=== PATIENT | male | born 1975 | race Caucasian/White ===

== ENCOUNTER 2016-07-11 08:46 | Inpatient (IN) | payer OTHER ==
[2016-07-11 10:19] VITALS: BMI 25.9
--- NOTE | 2016-07-11 12:34 | HP ---
COWS - Scale Resting Pulse: 0= [place] 80 or Below Sweatin=Flushed/Facial Moisture Restless Observation: 3= Extraneous Movement Pupil Size: 2= Moderately Dilated Bone or Joint Aches: 2= Severe Diffuse Aches Runny Nose/ Eye Tearin= Runny Nose/Eyes GI Upset > 30mins: 3= Vomiting/Diarrhea Tremor Observation: 2= Slight Tremor Visible Yawning Observation: 2= >3x During Session Anxiety or Irritability: 2=Irritable/Anxious Goose Flesh Skin: 0=Smooth Skin COWS Score: 20 CIWA Score - CIWA Score Nausea/Vomitin Muscle Tremors: 3 Anxiety: 3 Agitation: 3 Paroxysmal Sweats: 2 Orientation: 0-Oriented Tacttile Disturbances: 2-Mild Itch/Numbness/Burn Auditory Disturbances: 2-Mild Harshness/Frighten Visual Disturbances: 2-Mild Sensitivity Headache: 2-Mild CIWA-Ar Total Score: 22 Admission ROS BHS - HPI Chief Complaint: I NEED HELP TO STOP USING HEROIN,ALCOHOL AND COCAINE Allergies/Adverse Reactions: Allergies Allergy/AdvReac Type Severity Reaction Status Date / Time No Known Allergies Allergy Verified 07/11/16 11:13 History of Present Illness: THIS 41 YEARS OLD MALE SEEKING HELP TO STOP USING HEROIN,ALCOHOL AND COCAINE, LAST DETOX [facility] LAST 05/23 NOT COMPLETED NICOTINE DEPENDENCE WEIGHT LOSS BIPOLAR DISORDER,PTSD Exam Limitations: No Limitations - Ebola screening Have you traveled outside of the country in the last 21 days: No Have you had contact with anyone from an Ebola affected area: No Have you been sick,other than usual withdrawal symptoms: No Do you have a fever: No - Review of Systems Constitutional: Chills, Loss of Appetite, Malaise, Night Sweats, Changes in sleep, Weakness, Unintentional Wgt. Loss EENT: reports: Tearing, Nose Congestion Respiratory: reports: No Symptoms reported Cardiac: reports: Palpitations GI: reports: Diarrhea, Nausea, Vomiting, Abdominal cramping : reports: No Symptoms Reported Musculoskeletal: reports: Back Pain, Joint Pain, Muscle Pain, Joint Stiffness Integumentary: reports: Dryness Neuro: reports: Headache, Tremors Endocrine: reports: No Symptoms Reported Hematology: reports: No Symptoms Reported Psychiatric: reports: No Sypmtoms Reported (BIPOLAR DISORDER,PTSD), Judgement Intact, Mood/Affect Appropiate, Orientated x3, other Patient History - Patient Medical History Hx Anemia: No Hx Asthma: No Hx Chronic Obstructive Pulmonary Disease (COPD): No Hx Cancer: No Hx Cardiac Disorders: No Hx Congestive Heart Failure: No Hx Hypertension: No Hx Hypercholesterolemia: No Hx Pacemaker: No HX Cerebrovascular Accident: No Hx Seizures: No Hx Dementia: No Hx Diabetes: No Hx Gastrointestinal Disorders: No Hx Liver Disease: No Hx Genitourinary Disorders: No Hx Sexually Transmitted Disorders: No Hx Renal Disease (ESRD): No Hx Thyroid Disease: No Hx Human Immunodeficiency Virus (HIV): No (LAST 2015) Hx Hepatitis C: No Hx Depression: Yes Hx Suicide Attempt: No Hx Bipolar Disorder: Yes (no medications) Hx Schizophrenia: No Other Medical History: NO SUICIDAL,NO HOMICIDAL - Patient Surgical History Past Surgical History: No Hx Neurologic Surgery: No Hx Cataract Extraction: No Hx Cardiac Surgery: No Hx Lung Surgery: No Hx Breast Surgery: No Hx Breast Biopsy: No Hx Abdominal Surgery: No Hx Appendectomy: No Hx Cholecystectomy: No Hx Genitourinary Surgery: No Hx Section: No Hx Orthopedic Surgery: No Anesthesia Reaction: No - PPD History Previous Implant?: Yes Documented Results: Negative w/o proof Implanted On Prior R Admission?: Yes Date: 09/23/14 Results: 0 mm PPD to be Administered?: Yes - Smoking Cessation Smoking history: Current every day smoker Have you smoked in the past 12 months: Yes Aproximately how many cigarettes per day: 10 Cigars Per Day: 0 Hx Chewing Tobacco Use: No Initiated information on smoking cessation: Yes 'Breaking Loose' booklet given: 07/11/16 - Substance & Tx. History Hx Alcohol Use: Yes Hx Substance Use: Yes Substance Use Type: Alcohol, Cocaine, Heroin - Substances Abused Heroin Route: Injection Frequency: Daily Amount used: 8 bags Age of first use: 19 Date of Last Use: 07/10/16 Cocaine Route: Inhalation Frequency: 3-6 times per week Amount used: $40 Age of first use: 26 Date of Last Use: 07/10/16 Alcohol-beer/vodka Route: Oral Frequency: Daily Amount used: 2-6 pks./1-2 pts. Age of first use: 22 Date of Last Use: 07/11/16 Family Disease History - Family Disease History Family History: Denies Admission Physical Exam BHS - Vital Signs Vital Signs: Vital Signs - 24 hr 07/11/16 10:10 Temperature 98.1 F Pulse Rate 73 Respiratory 20 Rate Blood Pressure 119/71 - Physical General Appearance: Yes: Moderate Distress, Tremorous, Sweating, Anxious HEENTM: Yes: Hearing grossly Normal, Normocephalic, Nasal Congestion Respiratory: Yes: Lungs Clear, Normal Breath Sounds, No Respiratory Distress Neck: Yes: Within Normal Limits Breast: Yes: Within Normal Limits Cardiology: Yes: Within Normal Limits, Regular Rhythm, Regular Rate, S1, S2 Abdominal: Yes: Within Normal Limits, Normal Bowel Sounds, Non Tender, Flat, Soft Genitourinary: Yes: Within Normal Limits Back: Yes: Normal Inspection, Muscle Spasm Musculoskeletal: Yes: Back pain, Joint Stiffness, Muscle Pain Extremities: Yes: Normal Inspection, Normal Range of Motion, Tremors Neurological: Yes: research instructor II-XII NML intact, Fully Oriented, Alert, Motor Strength 5/5 Integumentary: Yes: Dry, Track Marcelino Lymphatic: Yes: Within Normal Limits - Diagnostic (1) Opioid dependence with withdrawal Current Visit: Yes Status: Acute (2) Alcohol dependence with uncomplicated withdrawal Current Visit: Yes Status: Acute (3) Cocaine dependence Current Visit: No Status: Active (4) Nicotine dependence Current Visit: No Status: Acute (5) Bipolar disorder Current Visit: No Status: Suspected (6) Post traumatic stress disorder (PTSD) Current Visit: Yes Status: Acute (7) Weight loss Current Visit: Yes Status: Acute Cleared for Admission [facility] - Detox or Rehab [facility] Level of Care: Medically Managed Detox Regimen/Protocol: Methadone/Librium S Breath Alcohol Content Breath Alcohol Content: 0 Urine Drug Screen - Results Drug Screen Negative: No Urine Drug Screen Results: PRISCILLA-Cocaine, OPI-Opiates
[2016-07-11] MEDS ORDERED: MAG HYDROX/AL HYDROX/SIMETH 30 ML UNIT-DOSE CUP PO PRN (12:47)
[2016-07-11] MEDS ORDERED: IBUPROFEN 400 MG TABLET (FP) PO PRN (12:47)
[2016-07-11] MEDS ORDERED: hydrOXYzine PAMOATE 50 MG CAPSULE (FP) PO PRN (12:47)
[2016-07-11] MEDS ORDERED: P-EPHED 60MG/TRIPROLIDI 2.5MG TABLET PO PRN (12:47)
[2016-07-11] MEDS ORDERED: MAGNESIUM HYDROX 2400MG/30ML ORAL SUSPENSION 30 ML CUP PO PRN (12:47)
[2016-07-11] MEDS ORDERED: LOPERAMIDE HCL 2 MG CAPSULE PO PRN (12:47)
[2016-07-11] MEDS ORDERED: MENTHOL/PHENOL 1 EACH UD MM PRN (12:47)
[2016-07-11] MEDS ORDERED: MAGNESIUM CITRATE 300 ML BOTTLE PO PRN (12:47)
[2016-07-11] MEDS ORDERED: chlordiazePOXIDE HCL 25 MG CAPSULE PO PRN (12:47)
[2016-07-11] MEDS ORDERED: ACETAMINOPHEN 325 MG TABLET (FP) PO PRN (12:47)
[2016-07-11] MEDS ORDERED: METHADONE HCL 10 MG TABLET (FOR DETOX USE ONLY) PO ONE ×2 (13:57→23:00)
[2016-07-11] MEDS ORDERED: chlordiazePOXIDE HCL 25 MG CAPSULE PO ONE (13:57)
[2016-07-11] MEDS: chlordiazePOXIDE HCL 25 MG CAPSULE PO SCH ×2 (17:28→22:19)
[2016-07-11] MEDS: THIAMINE HCL 100 MG TABLET (FP) PO SCH (22:19)
[2016-07-11] MEDS: cloNIDine HCL 0.1 MG TABLET PO SCH (22:19)
[2016-07-12] MEDS: diphenhydrAMINE HCL 50 MG CAPSULE PO PRN ×2 (00:37→02:01)
[2016-07-12] MEDS: CYCLOBENZAPRINE HCL 10 MG TABLET (FP) PO PRN ×2 (02:02→22:29)
[2016-07-12] MEDS: chlordiazePOXIDE HCL 25 MG CAPSULE PO SCH ×4 (05:30→22:29)
--- NOTE | 2016-07-12 09:15 | EKG ---
Test Reason : Blood Pressure : / mmHG Vent. Rate : 055 BPM Atrial Rate : 055 BPM P-R Int : 144 ms QRS Dur : 100 ms QT Int : 466 ms P-R-T Axes : 057 067 053 degrees QTc Int : 445 ms SINUS BRADYCARDIA OTHERWISE NORMAL ECG NO PREVIOUS ECGS AVAILABLE Confirmed by USHA ARROYO MD ([id number]) on 07/12/2016 9:14:27 AM Referred By: Confirmed By:USHA ARROYO MD
[2016-07-12] MEDS ORDERED: METHADONE HCL 10 MG TABLET (FOR DETOX USE ONLY) PO SCH (10:00)
[2016-07-12 10:12] LABS: MCH 29.8 pg (25.7-33.7); MCHC 33.7 g/dl (32.0-35.9); MEAN CELL VOLUME 88.4 fl (80-96); PLATELET COUNT 376 K/MM3 (134-434); RDW 15.1 % (11.9-15.9); WHITE BLOOD COUNT 6.9 K/mm3 (4.0-10.0)
[2016-07-12] MEDS: PRENATAL VITAMINS W/ FOLIC ACID TABLET (FP) PO SCH (10:19)
[2016-07-12] MEDS: cloNIDine HCL 0.1 MG TABLET PO SCH ×2 (10:19→22:29)
[2016-07-12 10:31] LABS: ALBUMIN 3.8 g/dl (3.4-5.0)
[2016-07-12 10:39] LABS: ALK PHOS 60 U/L (45-117); ANION GAP 10 (8-16); BILIRUBIN,TOTAL 0.3 mg/dL (0.2-1.0); CO2 28 mmol/L (21-32); COCKROFT - GAULT 127.7; CREATININE 0.7 mg/dL (0.7-1.3); GLUCOSE,RANDOM 83 mg/dL (74-106); SGOT/AST 25 U/L (15-37); SGPT/ALT 29 U/L (12-78); TOT PROT 7.1 g/dl (6.4-8.2)
[2016-07-12] MEDS ORDERED: ONDANSETRON *ODT* 4 MG TABLET SL PRN (12:47)
--- NOTE | 2016-07-12 15:22 | CONSULT ---
[facility] Psychiatric Consult - Data Date of interview: 07/12/16 Admission source: [facility] Identifying data: Readmission to [facility] for this 41 y/o male seeking detox treatment for alcohol,heroin and cocaine dependence.Patient is single without children,domiciled,unemployed and supported on food stamps. Substance Abuse History: - Smoking Cessation. Smoking history: Current every day smoker. Have you smoked in the past 12 months: Yes. Aproximately how many cigarettes per day: 10. Cigars Per Day: 0. Hx Chewing Tobacco Use: No. Initiated information on smoking cessation: Yes. 'Breaking Loose' booklet given : 07/11/16. - Substance & Tx. History. Hx Alcohol Use: Yes. Hx Substance Use : Yes. Substance Use Type: Alcohol, Cocaine, Heroin. - Substances Abused. Heroin. Route: Injection. Frequency: Daily. Amount used: 8 bags. Age of first use: 19. Date of Last Use: 07/10/16. Cocaine. Route: Inhalation. Frequency: 3-6 times per week. Amount used: $40. Age of first use: 26. Date of Last Use: 07/10/16. Alcohol-beer/vodka. Route: Oral. Frequency: Daily. Amount used: 2-6 pks./1-2 pts. Age of first use: 22. Date of Last Use: 07/11. Confirmed by patient. Medical History: Patient endorses good general health. Psychiatric History: Patient is a poor and unreliable historian.He reports a recent psychiatric hospitalization at [facility] (June 2016) .Diagnosed with Bipolar Disorder and PTSD (self-report).Prescribed seroquel 300 mg po bid but non-compliant for " past TWO months ".No OPD care for months.Mr Grove denies history of suicide attempts. Physical/Sexual Abuse/Trauma History: Patient declines to discuss this domain. Additional Comment: Urine Drug Screen Results: PRISCILLA-Cocaine, OPI-Opiates.Noted. Mental Status Exam - Mental Status Exam Alert and Oriented to: Time, Place, Person Patient Appearance: Unkempt, Disheveled Mood: Withdrawn Affect: Mood Congruent Patient Behavior: Cooperative (marginally) Speech Pattern: Clear Voice Loudness: Normal Thought Process: Goal Oriented Thought Disorder: Not Present Hallucinations: Denies Suicidal Ideation: Denies Homicidal Ideation: Denies Insight/Judgement: Poor Sleep: Poorly, Difficulty falling asleep Appetite: Good Muscle strength/Tone: Normal Gait/Station: Normal Psychiatric Findings - Problem List ([place] 1, 2,3) (1) Alcohol dependence with uncomplicated withdrawal Current Visit: Yes Status: Acute (2) Opioid dependence with withdrawal Current Visit: Yes Status: Acute (3) Cocaine dependence Current Visit: Yes Status: Active (4) Nicotine dependence Current Visit: Yes Status: Acute (5) Post traumatic stress disorder (PTSD) Current Visit: Yes Status: Chronic Comment: Self-report. (6) Bipolar disorder Current Visit: Yes Status: Chronic Comment: Self-report. (7) Substance induced mood disorder Current Visit: Yes Status: Acute (8) Insomnia Current Visit: Yes Status: Acute - Initial Treatment Plan Initial Treatment Plan: Psychoeducation.Detoxifiucation.Medications : seroquel 200 mg po hs.Ordered.Side effects/benefits discussed with patient.Pharmacy claims are reviewed (noted filled scripts for seroquel 400 mg/day # 30 tablets @ [facility] on 06/05/16).Patient agrees with careplan.Observation.
--- NOTE | 2016-07-12 16:53 | PN ---
S CIWA - CIWA Score Nausea/Vomitin Muscle Tremors: None Anxiety: 3 Agitation: 2 Paroxysmal Sweats: 3 Orientation: 0-Oriented Tacttile Disturbances: 3-Moderate Itch/Numb/Burn Auditory Disturbances: 0-None Visual Disturbances: 0-None Headache: 2-Mild CIWA-Ar Total Score: 18 BHS COWS - Scale Resting Pulse: 0= [place] 80 or Below Sweatin= Chills/Flushing Restless Observation: 1= Difficult to Sit Still Pupil Size: 0= Normal to Room Light Bone or Joint Aches: 2= Severe Diffuse Aches Runny Nose/ Eye Tearin= Runny Nose/Eyes GI Upset > 30mins: 3= Vomiting/Diarrhea Tremor Observation of Outstretched Hands: 2= Slight Tremor Visible Yawning Observation: 1= 1-2x During Session Anxiety or Irritability: 2=Irritable/Anxious Goose Flesh Skin: 3=Piloerection COWS Score: 17 S Progress Note (SOAP) Subjective: Vomiting, Fatigue, Sweating, Interrupted Sleep, Body aches, H/A, Diarrhea. Objective: PT. A & O X 3. 07/12/16 16:50 Vital Signs Temperature 97.7 F 07/12/16 15:20 Pulse Rate 72 07/12/16 15:20 Respiratory Rate 18 07/12/16 15:20 Blood Pressure 116/89 07/12/16 15:20 O2 Sat by Pulse Oximetry (%) Laboratory Last Values WBC 6.9 K/mm3 (4.0-10.0) 07/12/16 06:10 RBC 4.70 M/mm3 (4.00-5.60) 07/12/16 06:10 Hgb 14.0 GM/dL (11.7-16.9) 07/12/16 06:10 Hct 41.5 % (35.4-49) 07/12/16 06:10 MCV 88.4 fl (80-96) 07/12/16 06:10 MCHC 33.7 g/dl (32.0-35.9) 07/12/16 06:10 RDW 15.1 % (11.9-15.9) 07/12/16 06:10 Plt Count 376 K/MM3 (134-434) 07/12/16 06:10 MPV 8.0 fl (7.5-11.1) 07/12/16 06:10 Sodium 138 mmol/L (136-145) 07/12/16 06:10 Potassium 3.8 mmol/L (3.5-5.1) 07/12/16 06:10 Chloride 100 mmol/L (98-107) 07/12/16 06:10 Carbon Dioxide 28 mmol/L (21-32) 07/12/16 06:10 Anion Gap 10 (8-16) 07/12/16 06:10 BUN 8 mg/dL (7-18) 07/12/16 06:10 Creatinine 0.7 mg/dL (0.7-1.3) 07/12/16 06:10 Creat Clearance w eGFR > 60 (>60) 07/12/16 06:10 Random Glucose 83 mg/dL (74-106) 07/12/16 06:10 Calcium 9.0 mg/dL (8.5-10.1) 07/12/16 06:10 Total Bilirubin 0.3 mg/dL (0.2-1.0) 07/12/16 06:10 AST 25 U/L (15-37) D 07/12/16 06:10 ALT 29 U/L (12-78) D 07/12/16 06:10 Alkaline Phosphatase 60 U/L (45-117) D 07/12/16 06:10 Total Protein 7.1 g/dl (6.4-8.2) 07/12/16 06:10 Albumin 3.8 g/dl (3.4-5.0) 07/12/16 06:10 RPR Titer Nonreactive (NONREACTIVE) 07/12/16 06:10 LABS NOTED. Assessment: 07/12/16 16:51 WITHDRAWAL SYMPTOMS. Plan: CONTINUE DETOX. PRN ZOFRAN FOR VOMITING. PRN IMMODIUM FOR DIARRHEA. ADVISED PATIENT TO FOLLOW-UP WITH SYSTEM ADMINISTRATION MANAGER / REHAB MEDICAL PROVIDER AFTER DISCHARGE FROM DETOX FOR GENERAL MEDICAL ASSESSMENT.
[2016-07-12] MEDS ORDERED: chlordiazePOXIDE HCL 25 MG CAPSULE ONE (17:41)
[2016-07-12] MEDS: THIAMINE HCL 100 MG TABLET (FP) PO SCH (22:29)
[2016-07-12] MEDS: QUEtiapine FUMARATE 200 MG TABLET PO SCH (22:29)
[2016-07-13] MEDS: chlordiazePOXIDE HCL 25 MG CAPSULE PO SCH ×2 (05:37→10:19)
[2016-07-13] MEDS: guaiFENesin/D-METHORPHAN HB 10 ML UNIT-DOSE CUPS PO PRN (05:38)
[2016-07-13] MEDS: METHADONE HCL 5 MG TABLET (FOR DETOX USE ONLY) PO SCH (10:18)
[2016-07-13] MEDS: cloNIDine HCL 0.1 MG TABLET PO SCH ×2 (10:18→22:16)
[2016-07-13] MEDS: PRENATAL VITAMINS W/ FOLIC ACID TABLET (FP) PO SCH (10:18)
[2016-07-13] MEDS ORDERED: ONDANSETRON 4 MG TABLET PO ONE (12:19)
--- NOTE | 2016-07-13 13:46 | PN ---
[facility] CIWA - CIWA Score Nausea/Vomitin Muscle Tremors: 4-Moderate,w/Arms Extend Anxiety: 4-Mod. Anxious/Guarded Agitation: 4-Moderately Restless Paroxysmal Sweats: No Perspiration Orientation: 0-Oriented Tacttile Disturbances: 1-Very Mild Itch/Numbness Auditory Disturbances: 0-None Visual Disturbances: 0-None Headache: 2-Mild CIWA-Ar Total Score: 20 BHS COWS - Scale Resting Pulse: 1= [place] 81-100 Sweatin=Flushed/Facial Moisture Restless Observation: 3= Extraneous Movement Pupil Size: 0= Normal to Room Light Bone or Joint Aches: 2= Severe Diffuse Aches Runny Nose/ Eye Tearin= Runny Nose/Eyes GI Upset > 30mins: 3= Vomiting/Diarrhea Tremor Observation of Outstretched Hands: 2= Slight Tremor Visible Yawning Observation: 1= 1-2x During Session Anxiety or Irritability: 2=Irritable/Anxious Goose Flesh Skin: 0=Smooth Skin COWS Score: 18 BHS Progress Note (SOAP) Subjective: Nausea, diarrhea, tremor, chills, sweating, stomach ache, interrupted sleep ( benadryl doesn't help) Objective: 07/13/16 13:44 Last Vital Signs Temp Pulse Resp BP Pulse Ox 96.6 F L 85 18 116/73 07/13/16 13:12 07/13/16 13:12 07/13/16 13:12 07/13/16 13:12 Laboratory Tests 07/12/16 07/12/16 07/12/16 06:10 06:10 06:10 WBC 6.9 RBC 4.70 Hgb 14.0 Hct 41.5 MCV 88.4 MCHC 33.7 RDW 15.1 Plt Count 376 MPV 8.0 Sodium 138 Potassium 3.8 Chloride 100 Carbon Dioxide 28 Anion Gap 10 BUN 8 Creatinine 0.7 Creat Clearance w eGFR > 60 Random Glucose 83 Calcium 9.0 Total Bilirubin 0.3 AST 25 D ALT 29 D Alkaline Phosphatase 60 D Total Protein 7.1 Albumin 3.8 RPR Titer Nonreactive Labs noted Assessment: 07/13/16 13:45 Withdrawal symptoms Plan: Continue detox, encouraged to drink lots of water Ambien 10mg PO x 1 dose tonight for interrupted sleep
[2016-07-13] MEDS: chlordiazePOXIDE 5 MG CAPSULE PO SCH ×2 (17:51→22:13)
[2016-07-13] MEDS ORDERED: ZOLPIDEM TARTRATE 5 MG TABLET PO ONE (22:00)
[2016-07-13] MEDS: QUEtiapine FUMARATE 200 MG TABLET PO SCH (22:13)
[2016-07-13] MEDS: THIAMINE HCL 100 MG TABLET (FP) PO SCH (22:13)
[2016-07-13] MEDS: CYCLOBENZAPRINE HCL 10 MG TABLET (FP) PO PRN (22:13)
[2016-07-14] MEDS: guaiFENesin/D-METHORPHAN HB 10 ML UNIT-DOSE CUPS PO PRN (00:35)
[2016-07-14] MEDS: chlordiazePOXIDE 5 MG CAPSULE PO SCH ×2 (05:28→10:14)
[2016-07-14] MEDS: PRENATAL VITAMINS W/ FOLIC ACID TABLET (FP) PO SCH (10:14)
[2016-07-14] MEDS: cloNIDine HCL 0.1 MG TABLET PO SCH ×2 (10:14→22:19)
[2016-07-14] MEDS: METHADONE HCL 5 MG TABLET (FOR DETOX USE ONLY) PO SCH (10:15)
--- NOTE | 2016-07-14 10:42 | PN ---
JULIAN Progress Note Note: Psychiatry Attending's note : Asked to revisit medications. Issue : insomnia. Ineffective response to 200 mg of seroquel. Patient seen at bedside.Options discussed. Mr Grove requests 300 mg of seroquel at HS. " That is usually my dose ." Benign hospital course. Plan : Seroquel 300 mg po hs.Ordered. Patient is reminded of side effects/benefits.
--- NOTE | 2016-07-14 14:23 | PN ---
BHS Progress Note (SOAP) Subjective: Sweating,interrupted sleep,restless. Objective: 07/14/16 14:22 Vital Signs - 8 hr 07/14/16 07/14/16 06:25 09:21 Temperature 97.9 F 96.9 F L Pulse Rate 73 80 Respiratory 18 18 Rate Blood Pressure 99/63 107/70 Laboratory Tests 07/12/16 07/12/16 07/12/16 06:10 06:10 06:10 WBC 6.9 RBC 4.70 Hgb 14.0 Hct 41.5 MCV 88.4 MCHC 33.7 RDW 15.1 Plt Count 376 MPV 8.0 Sodium 138 Potassium 3.8 Chloride 100 Carbon Dioxide 28 Anion Gap 10 BUN 8 Creatinine 0.7 Creat Clearance w eGFR > 60 Random Glucose 83 Calcium 9.0 Total Bilirubin 0.3 AST 25 D ALT 29 D Alkaline Phosphatase 60 D Total Protein 7.1 Albumin 3.8 RPR Titer Nonreactive labs noted Assessment: 07/14/16 14:23 Withdrawal sx. Plan: Continue detox
[2016-07-14] MEDS: chlordiazePOXIDE HCL 10 MG CAPSULE PO SCH ×2 (17:12→22:19)
[2016-07-14] MEDS: CYCLOBENZAPRINE HCL 10 MG TABLET (FP) PO PRN (22:19)
[2016-07-14] MEDS: THIAMINE HCL 100 MG TABLET (FP) PO SCH (22:19)
[2016-07-14] MEDS: QUEtiapine FUMARATE 300 MG TABLET PO SCH (22:19)
[2016-07-15] MEDS: chlordiazePOXIDE HCL 10 MG CAPSULE PO SCH ×2 (05:13→10:08)
[2016-07-15] MEDS ORDERED: METHADONE HCL 10 MG TABLET (FOR DETOX USE ONLY) PO SCH (10:00)
[2016-07-15] MEDS: cloNIDine HCL 0.1 MG TABLET PO SCH ×2 (10:08→22:12)
[2016-07-15] MEDS: PRENATAL VITAMINS W/ FOLIC ACID TABLET (FP) PO SCH (10:08)
--- NOTE | 2016-07-15 10:52 | PN ---
BHS Progress Note (SOAP) Subjective: Sweating,interrupted sleep,restless. Objective: 07/15/16 10:51 Vital Signs - 8 hr 07/15/16 07/15/16 07/15/16 03:30 06:39 09:48 Temperature 97.3 F L 97.9 F Pulse Rate 82 74 Respiratory 18 18 18 Rate Blood Pressure 111/65 106/71 Laboratory Last Values WBC 6.9 K/mm3 (4.0-10.0) 07/12/16 06:10 RBC 4.70 M/mm3 (4.00-5.60) 07/12/16 06:10 Hgb 14.0 GM/dL (11.7-16.9) 07/12/16 06:10 Hct 41.5 % (35.4-49) 07/12/16 06:10 MCV 88.4 fl (80-96) 07/12/16 06:10 MCHC 33.7 g/dl (32.0-35.9) 07/12/16 06:10 RDW 15.1 % (11.9-15.9) 07/12/16 06:10 Plt Count 376 K/MM3 (134-434) 07/12/16 06:10 MPV 8.0 fl (7.5-11.1) 07/12/16 06:10 Sodium 138 mmol/L (136-145) 07/12/16 06:10 Potassium 3.8 mmol/L (3.5-5.1) 07/12/16 06:10 Chloride 100 mmol/L (98-107) 07/12/16 06:10 Carbon Dioxide 28 mmol/L (21-32) 07/12/16 06:10 Anion Gap 10 (8-16) 07/12/16 06:10 BUN 8 mg/dL (7-18) 07/12/16 06:10 Creatinine 0.7 mg/dL (0.7-1.3) 07/12/16 06:10 Creat Clearance w eGFR > 60 (>60) 07/12/16 06:10 Random Glucose 83 mg/dL (74-106) 07/12/16 06:10 Calcium 9.0 mg/dL (8.5-10.1) 07/12/16 06:10 Total Bilirubin 0.3 mg/dL (0.2-1.0) 07/12/16 06:10 AST 25 U/L (15-37) D 07/12/16 06:10 ALT 29 U/L (12-78) D 07/12/16 06:10 Alkaline Phosphatase 60 U/L (45-117) D 07/12/16 06:10 Total Protein 7.1 g/dl (6.4-8.2) 07/12/16 06:10 Albumin 3.8 g/dl (3.4-5.0) 07/12/16 06:10 Urine Color Cancelled 07/11/16 14:00 Urine Appearance Cancelled 07/11/16 14:00 Urine pH Cancelled 07/11/16 14:00 Ur Specific [place] Cancelled 07/11/16 14:00 Urine Protein Cancelled 07/11/16 14:00 Urine Glucose (UA) Cancelled 07/11/16 14:00 Urine Clinitest Cancelled 07/11/16 14:00 Urine Ketones Cancelled 07/11/16 14:00 Urine Blood Cancelled 07/11/16 14:00 Urine Nitrite Cancelled 07/11/16 14:00 Urine Bilirubin Cancelled 07/11/16 14:00 Urine Ictotest Cancelled 07/11/16 14:00 Prot Sulfosalicylic Acd Cancelled 07/11/16 14:00 Urine Urobilinogen Cancelled 07/11/16 14:00 Ur Leukocyte Esterase Cancelled 07/11/16 14:00 RPR Titer Nonreactive (NONREACTIVE) 07/12/16 06:10 labs noted Assessment: 07/15/16 10:51 Withdrawal sx. Plan: Continue detox
[2016-07-15] MEDS: THIAMINE HCL 100 MG TABLET (FP) PO SCH (22:12)
[2016-07-15] MEDS: QUEtiapine FUMARATE 300 MG TABLET PO SCH (22:12)
[2016-07-16] MEDS ORDERED: METHADONE HCL 5 MG TABLET (FOR DETOX USE ONLY) PO SCH (06:00)
--- NOTE | 2016-07-16 08:34 | PN ---
S Progress Note (SOAP) Subjective: ALERT,NO COMPLAINT Objective: 07/16/16 08:32 Vital Signs Temperature 98.7 F 07/16/16 06:23 Pulse Rate 82 07/16/16 06:23 Respiratory Rate 18 07/16/16 06:23 Blood Pressure 111/68 07/16/16 06:23 O2 Sat by Pulse Oximetry (%) Assessment: 07/16/16 08:33 DETOX COMPLETED,NO WITHDRAWAL SYMPTOM Plan: DISCARGE TODAY,FOLLOW UP WITH [facility] APPOINTMENT
--- NOTE | 2016-07-16 08:37 | DS ---
[facility] Detox Discharge Summary Admission Date: 07/11/16 Discharge Date: 07/16/16 - History Present History: Alcohol Dependence, Cocaine Dependence, Opioid Dependence Additional Comments: FOLLOW UP WITH AFTER CARE PROGRAM ARRANGEMENT Pertinent Past History: NICOTINE DEPENDENCE BIPOLAR DISORDER PTSD WEIGHT LOSS - Physical Exam Results Vital Signs: Vital Signs Temperature 98.7 F 07/16/16 06:23 Pulse Rate 82 07/16/16 06:23 Respiratory Rate 18 07/16/16 06:23 Blood Pressure 111/68 07/16/16 06:23 O2 Sat by Pulse Oximetry (%) Pertinent Admission Physical Exam Findings: WITHDRAWAL SYMPTOM - Treatment Hospital Course: Detox Protocol Followed, Detoxed Safely, Responded well, Discharged Condition Good, Rehab Referral Accepted Patient has Accepted a Rehab Referral to: [facility] - Medication Discharge Medications: Ambulatory Orders Quetiapine Fumarate [Seroquel -] 200 mg PO HS #30 tab 07/12/16 - Diagnosis (1) Opioid dependence with withdrawal Current Visit: Yes Status: Acute (2) Alcohol dependence with uncomplicated withdrawal Current Visit: Yes Status: Acute (3) Cocaine dependence Current Visit: Yes Status: Active (4) Nicotine dependence Current Visit: Yes Status: Acute (5) Bipolar disorder Current Visit: Yes Status: Chronic (6) Post traumatic stress disorder (PTSD) Current Visit: Yes Status: Chronic (7) Weight loss Current Visit: Yes Status: Acute - AMA Did Patient Leave Against Medical Advice: No
[2016-07-16 09:34] VITALS: BP 117/69; PULSE 76; TEMP 99.1
[2016-07-16] MEDS: PRENATAL VITAMINS W/ FOLIC ACID TABLET (FP) PO SCH (10:11)
[2016-07-16] MEDS: cloNIDine HCL 0.1 MG TABLET PO SCH (10:11)
== END 2016-07-16 11:09 | disposition other institution (70) | DRG 773 ==
LOC: YASAS 08:46 → Y3N 12:59
PROVIDERS: ADMIT Internal Medicine; ATTEND Internal Medicine
PROC: HZ2ZZZZ Detoxification Services for Substance Abuse Treatment (ICD-10-PCS; principal; 2016-07-11)
DX: F11.23 Opioid dependence with withdrawal (principal); F10.230 Alcohol dependence with withdrawal, uncomplicated; F14.20 Cocaine dependence, uncomplicated; F17.210 Nicotine dependence, cigarettes, uncomplicated; F31.9 Bipolar disorder, unspecified; F43.10 Post-traumatic stress disorder, unspecified; F19.24 Other psychoactive substance dependence with psychoactive substance-induced mood disorder; G47.00 Insomnia, unspecified; Z87.898 Personal history of other specified conditions
CPT/HCPCS: 36415; 80053; 81003; 85027; 86593; 93005; 93010

== ENCOUNTER 2016-07-16 11:20 | Inpatient (IN) | payer OTHER ==
[2016-07-16] MEDS ORDERED: IBUPROFEN 400 MG TABLET (FP) PO PRN (13:25)
[2016-07-16] MEDS ORDERED: MENTHOL/PHENOL 1 EACH UD MM PRN (13:25)
[2016-07-16] MEDS ORDERED: MAGNESIUM HYDROX 2400MG/30ML ORAL SUSPENSION 30 ML CUP PO PRN (13:25)
[2016-07-16] MEDS ORDERED: MAG HYDROX/AL HYDROX/SIMETH 30 ML UNIT-DOSE CUP PO PRN (13:25)
[2016-07-16] MEDS ORDERED: P-EPHED 60MG/TRIPROLIDI 2.5MG TABLET PO PRN (13:25)
[2016-07-16] MEDS ORDERED: diphenhydrAMINE HCL 50 MG CAPSULE PO PRN (13:25)
[2016-07-16] MEDS ORDERED: guaiFENesin/D-METHORPHAN HB 10 ML UNIT-DOSE CUPS PO PRN (13:25)
[2016-07-16] MEDS ORDERED: LOPERAMIDE HCL 2 MG CAPSULE PO PRN (13:25)
[2016-07-16] MEDS ORDERED: MAGNESIUM CITRATE 300 ML BOTTLE PO PRN (13:25)
--- NOTE | 2016-07-16 16:23 | HP ---
[facility] Rehab Assess/Revision - Admission History Admitted to Rehab from: [facility] Date of Admission to Rehab: 07/15/16 - Findings Detox History & Physical reviewed: Yes Concur with findings: Yes Comments/Additional Findings: transferred from detox to rehab admission as per protocol
[2016-07-16] MEDS: THIAMINE HCL 100 MG TABLET (FP) PO SCH (21:08)
[2016-07-16] MEDS ORDERED: QUEtiapine FUMARATE 200 MG TABLET PO SCH (22:00)
[2016-07-17] MEDS: PRENATAL VITAMINS W/ FOLIC ACID TABLET (FP) PO SCH (10:07)
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
[2016-07-17] MEDS: THIAMINE HCL 100 MG TABLET (FP) PO SCH (21:09)
[2016-07-17] MEDS: QUEtiapine FUMARATE 300 MG TABLET PO SCH (21:09)
[2016-07-17] MEDS: hydrOXYzine PAMOATE 50 MG CAPSULE (FP) PO PRN (21:10)
[2016-07-18] MEDS: QUEtiapine FUMARATE 300 MG TABLET PO SCH ×2 (09:43→21:08)
[2016-07-18] MEDS: PRENATAL VITAMINS W/ FOLIC ACID TABLET (FP) PO SCH (09:43)
[2016-07-18] MEDS: ACETAMINOPHEN 325 MG TABLET (FP) PO PRN (09:45)
--- NOTE | 2016-07-18 14:53 | PN ---
[facility] Progress Note Note: patient has difficulty at nights, unable to sleep, discussed indications and prperties of Remeron, patient agreed to start, will add, continue to monitor progress.
[2016-07-18] MEDS: THIAMINE HCL 100 MG TABLET (FP) PO SCH (21:08)
[2016-07-18] MEDS: hydrOXYzine PAMOATE 50 MG CAPSULE (FP) PO PRN (21:08)
[2016-07-18] MEDS: MIRTAZAPINE 15 MG TABLET (FP) PO SCH (21:08)
[2016-07-19] MEDS: PRENATAL VITAMINS W/ FOLIC ACID TABLET (FP) PO SCH (09:50)
[2016-07-19] MEDS: QUEtiapine FUMARATE 300 MG TABLET PO SCH ×2 (09:50→21:09)
[2016-07-19] MEDS: THIAMINE HCL 100 MG TABLET (FP) PO SCH (21:09)
[2016-07-19] MEDS: hydrOXYzine PAMOATE 50 MG CAPSULE (FP) PO PRN (21:09)
[2016-07-19] MEDS: ACETAMINOPHEN 325 MG TABLET (FP) PO PRN (21:10)
[2016-07-19] MEDS: MIRTAZAPINE 15 MG TABLET (FP) PO SCH (21:10)
[2016-07-20] MEDS: QUEtiapine FUMARATE 300 MG TABLET PO SCH ×2 (09:50→21:08)
[2016-07-20] MEDS: PRENATAL VITAMINS W/ FOLIC ACID TABLET (FP) PO SCH (09:50)
[2016-07-20] MEDS: THIAMINE HCL 100 MG TABLET (FP) PO SCH (21:08)
[2016-07-20] MEDS: ACETAMINOPHEN 325 MG TABLET (FP) PO PRN (21:08)
[2016-07-20] MEDS: MIRTAZAPINE 15 MG TABLET (FP) PO SCH (21:08)
[2016-07-20] MEDS: hydrOXYzine PAMOATE 50 MG CAPSULE (FP) PO PRN (21:08)
[2016-07-21] MEDS: PRENATAL VITAMINS W/ FOLIC ACID TABLET (FP) PO SCH (10:15)
[2016-07-21] MEDS: QUEtiapine FUMARATE 300 MG TABLET PO SCH ×2 (10:15→21:28)
[2016-07-21] MEDS: THIAMINE HCL 100 MG TABLET (FP) PO SCH (21:28)
[2016-07-21] MEDS: MIRTAZAPINE 15 MG TABLET (FP) PO SCH (21:28)
[2016-07-21] MEDS: hydrOXYzine PAMOATE 50 MG CAPSULE (FP) PO PRN (21:29)
[2016-07-22] MEDS ORDERED: diphenhydrAMINE HCL 50 MG CAPSULE PO ONE (01:18)
[2016-07-22] MEDS: PRENATAL VITAMINS W/ FOLIC ACID TABLET (FP) PO SCH (09:51)
[2016-07-22] MEDS: QUEtiapine FUMARATE 300 MG TABLET PO SCH ×2 (09:51→21:22)
[2016-07-22] MEDS: MIRTAZAPINE 15 MG TABLET (FP) PO SCH (21:22)
[2016-07-22] MEDS: THIAMINE HCL 100 MG TABLET (FP) PO SCH (21:22)
[2016-07-22] MEDS: hydrOXYzine PAMOATE 50 MG CAPSULE (FP) PO PRN (21:23)
[2016-07-23] MEDS: QUEtiapine FUMARATE 300 MG TABLET PO SCH ×2 (10:16→21:24)
[2016-07-23] MEDS: PRENATAL VITAMINS W/ FOLIC ACID TABLET (FP) PO SCH (10:16)
--- NOTE | 2016-07-23 11:25 | PN ---
Psychiatric Progress Note Vital Signs: Vital Signs Period Temp Pulse Resp BP Sys/Baldwin Pulse Ox Last 24 Hr 97.9 F 79 18-18 121/71 Date of Session: 07/23/16 Chief Complaint:: "insomnia" HPI: Patient is addressing alcohol,cocaine,cannabis, opioid, nicotine dependence comorbid PTSD, Schizophrenia. ROS: WNL Current Medications: Active Medications Generic Name Dose Route Start Last Admin Trade Name Freq PRN Reason Stop Dose Admin Acetaminophen 650 mg 07/16/16 13:25 07/20/16 21:08 Tylenol - PO 650 mg Q4H PRN Administration FEVER OR PAIN Al Hydroxide/Mg Hydroxide 30 ml 07/16/16 13:25 07/18/16 13:33 Mylanta Oral Suspension - PO 30 ml Q6H PRN Administration DYSPEPSIA Eucalyptus/Menthol/Phenol/Sorbitol 1 each 07/16/16 13:25 Cepastat Lozenge - MM Q4H PRN SORE THROAT Guaifenesin 10 ml 07/16/16 13:25 Robitussin Dm - PO Q6H PRN COUGH Hydroxyzine Pamoate 100 mg 07/17/16 11:32 07/22/16 21:23 Vistaril - PO 100 mg HS PRN Administration INSOMNIA Ibuprofen 400 mg 07/16/16 13:25 Motrin - PO Q6H PRN PAIN Loperamide HCl 4 mg 07/16/16 13:25 Imodium - PO Q6H PRN DIARRHEA Magnesium Hydroxide 30 ml 07/16/16 13:25 Milk Of Magnesia - PO DAILY PRN CONSTIPATION Multivit/Folic Acid/Iron 1 tab 07/17/16 10:00 07/23/16 10:16 Vitamins (Sjr) - PO 1 tab DAILY HALEY Administration Pseudoephedrine/Triprolidine 1 combo 07/16/16 13:25 Actifed - PO TID PRN NASAL CONGESTION Quetiapine Fumarate 300 mg 07/17/16 22:00 07/23/16 10:16 Seroquel - PO 300 mg BID HALEY Administration Thiamine HCl 100 mg 07/16/16 22:00 07/22/16 21:22 Vitamin B1 - PO 100 mg HS HALEY Administration Medication(s) Change(s): Belsomra Current Side Effect: No Lab tests ordered: No Lab tests reviewed: Yes Provider note:: Patient reports he has a difficult time at nights, his sleep is interrupted, he has difficulty to fall and maintain sleep, having nightmares related to childhood trauma, emotional supports provided. Reviewed his current medications, side-effect and benefits of Belsomra discussed, patient agreed to start medications. Total face to face time:: 30 Mental Status Exam - Mental Status Exam Alert and Oriented to: Time, Place, Person Cognitive Function: Grossly Intact Patient Appearance: Well Groomed Mood: Sad Affect: Appropriate, Mood Congruent Patient Behavior: Appropriate, Cooperative Speech Pattern: Clear, Appropriate Voice Loudness: Normal Thought Process: Goal Oriented Thought Disorder: Not Present Hallucinations: None Suicidal Ideation: None Homicidal Ideation: None Insight/Judgement: Good Sleep: Well Appetite: Weight loss, Weight gain Muscle strength/Tone: Normal Gait/Station: Normal Psychiatric Treatment Plan - Problem List (1) Alcohol dependence Current Visit: No (2) Cocaine dependence Current Visit: No (3) Cannabis dependence Current Visit: No (4) Heroin dependence Current Visit: No (5) Nicotine dependence Current Visit: No (6) Post traumatic stress disorder (PTSD) Current Visit: No Comment: Self-report. (7) Schizophrenia Current Visit: No
[2016-07-23] MEDS: CYCLOBENZAPRINE HCL 10 MG TABLET (FP) PO PRN (14:35)
[2016-07-23] MEDS: THIAMINE HCL 100 MG TABLET (FP) PO SCH (21:24)
[2016-07-23] MEDS: SUVOREXANT 10 MG TABLET PO PRN (21:25)
[2016-07-23] MEDS: hydrOXYzine PAMOATE 50 MG CAPSULE (FP) PO PRN (21:26)
[2016-07-24] MEDS: PRENATAL VITAMINS W/ FOLIC ACID TABLET (FP) PO SCH (10:20)
[2016-07-24] MEDS: QUEtiapine FUMARATE 300 MG TABLET PO SCH ×2 (10:21→21:28)
[2016-07-24] MEDS: CYCLOBENZAPRINE HCL 10 MG TABLET (FP) PO PRN (10:21)
[2016-07-24] MEDS: THIAMINE HCL 100 MG TABLET (FP) PO SCH (21:28)
[2016-07-24] MEDS: SUVOREXANT 10 MG TABLET PO PRN (21:29)
[2016-07-24] MEDS: hydrOXYzine PAMOATE 50 MG CAPSULE (FP) PO PRN (21:30)
[2016-07-25] MEDS: QUEtiapine FUMARATE 300 MG TABLET PO SCH ×2 (10:04→21:26)
[2016-07-25] MEDS: PRENATAL VITAMINS W/ FOLIC ACID TABLET (FP) PO SCH (10:04)
[2016-07-25] MEDS: THIAMINE HCL 100 MG TABLET (FP) PO SCH (21:26)
[2016-07-25] MEDS: CYCLOBENZAPRINE HCL 10 MG TABLET (FP) PO PRN (21:27)
[2016-07-25] MEDS: SUVOREXANT 10 MG TABLET PO PRN (21:27)
[2016-07-25] MEDS: hydrOXYzine PAMOATE 50 MG CAPSULE (FP) PO PRN (21:28)
[2016-07-26] MEDS: PRENATAL VITAMINS W/ FOLIC ACID TABLET (FP) PO SCH (10:02)
[2016-07-26] MEDS: QUEtiapine FUMARATE 300 MG TABLET PO SCH ×2 (10:02→21:34)
[2016-07-26] MEDS: CYCLOBENZAPRINE HCL 10 MG TABLET (FP) PO PRN ×2 (10:03→21:33)
[2016-07-26] MEDS: SUVOREXANT 10 MG TABLET PO PRN (21:33)
[2016-07-26] MEDS: hydrOXYzine PAMOATE 50 MG CAPSULE (FP) PO PRN (21:34)
[2016-07-26] MEDS: THIAMINE HCL 100 MG TABLET (FP) PO SCH (21:34)
[2016-07-27 07:06] VITALS: BP 123/87; PULSE 84; TEMP 98.5
[2016-07-27] MEDS: ACETAMINOPHEN 325 MG TABLET (FP) PO PRN (08:45)
[2016-07-27] MEDS: CYCLOBENZAPRINE HCL 10 MG TABLET (FP) PO PRN (08:45)
[2016-07-27] MEDS: QUEtiapine FUMARATE 300 MG TABLET PO SCH (10:12)
[2016-07-27] MEDS: PRENATAL VITAMINS W/ FOLIC ACID TABLET (FP) PO SCH (10:12)
--- NOTE | 2016-07-27 11:00 | PN ---
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 He already has an outpatient program which is [facility]. He is on Seroquel 300 mg po BID and Vistaril 100 mg po HS. He did not want scripts for these medications since he had filled scripts for them just prior his admission to this program. Discharge order given
== END 2016-07-27 11:00 | disposition home or self-care (01) | DRG 772 ==
LOC: YASAS 11:20 → Y5N 11:21
PROVIDERS: ADMIT Psychiatry & Neurology Psychiatry; ATTEND Psychiatry & Neurology Psychiatry
PROC: HZ42ZZZ Group Counseling for Substance Abuse Treatment, Cognitive-Behavioral (ICD-10-PCS; principal; 2016-07-27)
DX: F10.20 Alcohol dependence, uncomplicated (principal); F14.20 Cocaine dependence, uncomplicated; F12.20 Cannabis dependence, uncomplicated; F17.210 Nicotine dependence, cigarettes, uncomplicated; F20.9 Schizophrenia, unspecified; F43.10 Post-traumatic stress disorder, unspecified; F31.9 Bipolar disorder, unspecified

== ENCOUNTER 2016-08-18 11:27 | Inpatient (IN) | payer OTHER ==
[2016-08-18 12:59] VITALS: BMI 26.5
--- NOTE | 2016-08-18 14:54 | HP ---
COWS - Scale Resting Pulse: 0= HI 80 or Below Sweatin=Flushed/Facial Moisture Restless Observation: 1= Difficult to Sit Still Pupil Size: 0= Normal to Room Light Bone or Joint Aches: 1= Mild Discomfort Runny Nose/ Eye Tearin= Runny Nose/Eyes GI Upset > 30mins: 2= Nausea/Diarrhea Tremor Observation: 2= Slight Tremor Visible Yawning Observation: 2= >3x During Session Anxiety or Irritability: 2=Irritable/Anxious Goose Flesh Skin: 3=Piloerection COWS Score: 17 CIWA Score - CIWA Score Nausea/Vomitin-Mild Nausea/No Vomiting Muscle Tremors: 4-Moderate,w/Arms Extend Anxiety: 3 Agitation: 4-Moderately Restless Paroxysmal Sweats: 3 Orientation: 0-Oriented Tacttile Disturbances: 0-None Auditory Disturbances: 0-None Visual Disturbances: 0-None Headache: 3-Moderate CIWA-Ar Total Score: 18 Admission ROS BHS - HPI Chief Complaint: I need to get off the drugs. Allergies/Adverse Reactions: Allergies Allergy/AdvReac Type Severity Reaction Status Date / Time No Known Allergies Allergy Verified 08/18/16 14:13 History of Present Illness: pt is a 41yr old male with a history of alcohol, xanax and heroin dependence seeking detox for treatment. Exam Limitations: No Limitations - Ebola screening Have you traveled outside of the country in the last 21 days: No Have you had contact with anyone from an Ebola affected area: No Have you been sick,other than usual withdrawal symptoms: No Do you have a fever: No - Review of Systems Constitutional: Chills, Diaphoresis, Loss of Appetite, Night Sweats, Changes in sleep EENT: reports: Tearing, Nose Congestion Respiratory: reports: Cough Cardiac: reports: Lightheadedness GI: reports: Constipated, Diarrhea, Poor Appetite, Poor Fluid Intake, Indigestion : reports: No Symptoms Reported Musculoskeletal: reports: Back Pain, Joint Pain, Muscle Pain Integumentary: reports: No Symptoms Reported Neuro: reports: Headache, Tingling, Tremors Endocrine: reports: Excessive Sweating, Flushing, Intolerance to Cold, Intolerance to Heat Hematology: reports: No Symptoms Reported Psychiatric: reports: Judgement Intact, Mood/Affect Appropiate, Orientated x3, Agitated, Anxious Other Systems: Reviewed and Negative Patient History - Patient Medical History Hx Anemia: No Hx Asthma: No Hx Chronic Obstructive Pulmonary Disease (COPD): No Hx Cancer: No Hx Cardiac Disorders: No Hx Congestive Heart Failure: No Hx Hypertension: No Hx Hypercholesterolemia: No Hx Pacemaker: No HX Cerebrovascular Accident: No Hx Seizures: No Hx Dementia: No Hx Diabetes: No Hx Gastrointestinal Disorders: No Hx Liver Disease: No Hx Genitourinary Disorders: No Hx Sexually Transmitted Disorders: No Hx Renal Disease (ESRD): No Hx Thyroid Disease: No Hx Human Immunodeficiency Virus (HIV): No (negative) Hx Hepatitis C: No (negative) Hx Depression: Yes Hx Suicide Attempt: Yes (pill overdose in 05/2016/ denies any S/H ideation) Hx Bipolar Disorder: Yes (no medications) Hx Schizophrenia: Yes Other Medical History: ptsd - Patient Surgical History Past Surgical History: No Hx Neurologic Surgery: No Hx Cataract Extraction: No Hx Cardiac Surgery: No Hx Lung Surgery: No Hx Breast Surgery: No Hx Breast Biopsy: No Hx Abdominal Surgery: No Hx Appendectomy: No Hx Cholecystectomy: No Hx Genitourinary Surgery: No Hx Section: No Hx Orthopedic Surgery: No Anesthesia Reaction: No - PPD History Previous Implant?: Yes Documented Results: Negative w/proof Implanted On Prior R Admission?: Yes Date: 07/13/16 Results: 0 mm PPD to be Administered?: No - Reproductive History Patient is a Female of Child Bearing Age (11 -55 yrs old): No - Smoking Cessation Smoking history: Current every day smoker Have you smoked in the past 12 months: Yes Aproximately how many cigarettes per day: 10 Cigars Per Day: 0 Hx Chewing Tobacco Use: No Initiated information on smoking cessation: Yes 'Breaking Loose' booklet given: 08/18/16 - Substance & Tx. History Hx Alcohol Use: Yes Hx Substance Use: Yes Substance Use Type: Alcohol, Heroin, Prescribed - Substances Abused Heroin Route: Injection Frequency: Daily Amount used: 10 bags Age of first use: 23 Date of Last Use: 08/17/16 Crack Route: Smoking Frequency: 3-6 times per week Amount used: $50-80 Age of first use: 30 Date of Last Use: 08/17/16 PCP Route: Smoking Frequency: 1-3 times last 30 days Amount used: $10 Age of first use: 17 Date of Last Use: 08/16/16 Alcohol-beer/vodka Route: Oral Frequency: Daily Amount used: 2-6 pks./2 pts. Age of first use: 22 Date of Last Use: 08/17/16 Xanax Route: Oral Frequency: 3-6 times per week Amount used: 4 mg. Age of first use: 41 Date of Last Use: 08/16/16 Marijuana Route: Smoking Frequency: Daily Amount used: $10 Age of first use: 14 Date of Last Use: 08/16/16 Family Disease History - Family Disease History Family History: Denies Admission Physical Exam [facility] - Vital Signs Vital Signs: Vital Signs - 24 hr 08/18/16 12:52 Temperature 96.2 F L Pulse Rate 72 Respiratory 18 Rate Blood Pressure 110/70 - Physical General Appearance: Yes: Appropriately Dressed, Moderate Distress, Tremorous, Irritable, Sweating, Anxious HEENTM: Yes: Normal Voice Respiratory: Yes: Lungs Clear, Normal Breath Sounds, No Respiratory Distress Neck: Yes: No masses,lesions,Nodules Breast: Yes: Within Normal Limits Cardiology: Yes: Regular Rhythm, Regular Rate, S1, S2 Abdominal: Yes: Normal Bowel Sounds, Non Tender, Soft Genitourinary: Yes: Within Normal Limits Back: Yes: Normal Inspection Musculoskeletal: Yes: full range of Motion, Gait Steady Extremities: Yes: Normal Capillary Refill, Normal Inspection, Non-Tender, Tremors Neurological: Yes: Fully Oriented, Alert, Normal Response Integumentary: Yes: Normal Color, Diaphoresis, Track Marcelino Lymphatic: Yes: Within Normal Limits - Diagnostic (1) Cocaine dependence Current Visit: Yes Status: Chronic (2) Alcohol dependence with uncomplicated withdrawal Current Visit: Yes Status: Chronic (3) Nicotine dependence Current Visit: Yes Status: Chronic Qualifiers: Nicotine product type: cigarettes (4) Opioid dependence with withdrawal Current Visit: Yes Status: Chronic (5) PCP (phencyclidine) abuse Current Visit: Yes Status: Chronic Cleared for Admission [facility] - Detox or Rehab [facility] Level of Care: Medically Managed Detox Regimen/Protocol: Methadone/Librium [facility] Breath Alcohol Content Breath Alcohol Content: 0 Urine Drug Screen - Results Drug Screen Negative: No Urine Drug Screen Results: THC-Marijuana, PRISCILLA-Cocaine, OPI-Opiates, PCP- Phencyclidine, BZO-Benzodiazepines
[2016-08-18] MEDS ORDERED: P-EPHED 60MG/TRIPROLIDI 2.5MG TABLET PO PRN (15:09)
[2016-08-18] MEDS ORDERED: MENTHOL/PHENOL 1 EACH UD MM PRN (15:09)
[2016-08-18] MEDS ORDERED: MAGNESIUM CITRATE 300 ML BOTTLE PO PRN (15:09)
[2016-08-18] MEDS ORDERED: guaiFENesin/D-METHORPHAN HB 10 ML UNIT-DOSE CUPS PO PRN (15:09)
[2016-08-18] MEDS ORDERED: LOPERAMIDE HCL 2 MG CAPSULE PO PRN (15:09)
[2016-08-18] MEDS ORDERED: MAGNESIUM HYDROX 2400MG/30ML ORAL SUSPENSION 30 ML CUP PO PRN (15:09)
[2016-08-18] MEDS ORDERED: NICOTINE POLACRILEX 4 MG GUM BUC PRN (15:09)
[2016-08-18] MEDS ORDERED: hydrOXYzine PAMOATE 50 MG CAPSULE (FP) PO PRN (15:09)
[2016-08-18] MEDS ORDERED: MAG HYDROX/AL HYDROX/SIMETH 30 ML UNIT-DOSE CUP PO PRN (15:09)
[2016-08-18] MEDS ORDERED: ACETAMINOPHEN 325 MG TABLET (FP) PO PRN (15:09)
[2016-08-18] MEDS ORDERED: diphenhydrAMINE HCL 50 MG CAPSULE PO PRN (15:09)
[2016-08-18] MEDS ORDERED: chlordiazePOXIDE HCL 25 MG CAPSULE PO PRN (15:09)
[2016-08-18] MEDS ORDERED: IBUPROFEN 400 MG TABLET (FP) PO PRN (15:09)
[2016-08-18] MEDS ORDERED: chlordiazePOXIDE HCL 25 MG CAPSULE PO ONE (15:19)
[2016-08-18] MEDS ORDERED: METHADONE HCL 10 MG TABLET (FOR DETOX USE ONLY) PO ONE ×2 (15:21→23:00)
[2016-08-18 17:27] LABS: URINE APPEARANCE CLEAR; URINE BILIRUBIN NEGATIVE (NEGATIVE); URINE BLOOD NEGATIVE (NEGATIVE); URINE COLOR YELLOW; URINE GLUCOSE (UA) NEGATIVE (NEGATIVE); URINE KETONE TRACE (NEGATIVE); URINE LEUK ESTERASE NEGATIVE (NEGATIVE); URINE NITRITE NEGATIVE (NEGATIVE); URINE PROTEIN NEGATIVE (NEGATIVE); URINE UROBILINOGEN 2.0 E.U/dl E.U./dl (0.2-1.0)
[2016-08-18] MEDS: chlordiazePOXIDE HCL 25 MG CAPSULE PO SCH ×2 (17:39→22:25)
[2016-08-18] MEDS: THIAMINE HCL 100 MG TABLET (FP) PO SCH (22:25)
[2016-08-19] MEDS: chlordiazePOXIDE HCL 25 MG CAPSULE PO SCH ×4 (05:27→22:40)
[2016-08-19 09:53] LABS: MCH 29.8 pg (25.7-33.7); MCHC 33.3 g/dl (32.0-35.9); MEAN CELL VOLUME 89.5 fl (80-96); MEAN PLT VOLUME 7.5 fl (7.5-11.1); PLATELET COUNT 331 K/MM3 (134-434); RDW 15.1 % (11.9-15.9)
[2016-08-19] MEDS ORDERED: METHADONE HCL 10 MG TABLET (FOR DETOX USE ONLY) PO SCH (10:00)
--- NOTE | 2016-08-19 10:11 | PN ---
[facility] CIWA - CIWA Score Nausea/Vomitin Muscle Tremors: 3 Anxiety: 3 Agitation: 2 Paroxysmal Sweats: 1-Minimal Palms Moist Orientation: 0-Oriented Tacttile Disturbances: 1-Very Mild Itch/Numbness Auditory Disturbances: 1-Very Mild Visual Disturbances: 1-Very Mild Sensitivity Headache: 2-Mild CIWA-Ar Total Score: 17 BHS COWS - Scale Resting Pulse: 1= [place] 81-100 Sweatin=Flushed/Facial Moisture Restless Observation: 3= Extraneous Movement Pupil Size: 1= Pupils >than Normal Bone or Joint Aches: 2= Severe Diffuse Aches Runny Nose/ Eye Tearin= Runny Nose/Eyes GI Upset > 30mins: 2= Nausea/Diarrhea Tremor Observation of Outstretched Hands: 2= Slight Tremor Visible Yawning Observation: 1= 1-2x During Session Anxiety or Irritability: 2=Irritable/Anxious Goose Flesh Skin: 0=Smooth Skin COWS Score: 18 S Progress Note (SOAP) Subjective: ALERT,IRRITABLE,ANXIOUS,INTERRUPTED SLEEP,PAIN IN THE BODY AND BACK Objective: 08/19/16 10:10 Vital Signs Temperature 98.4 F 08/19/16 09:35 Pulse Rate 71 08/19/16 09:35 Respiratory Rate 18 08/19/16 09:35 Blood Pressure 141/90 08/19/16 09:35 O2 Sat by Pulse Oximetry (%) EKG NSR,INVERTED T IN V3 NO CHRST PAIN,NO SOB,NO DIZZINESS Laboratory Last Values WBC 6.0 K/mm3 (4.0-10.0) 08/19/16 06:00 RBC 4.56 M/mm3 (4.00-5.60) 08/19/16 06:00 Hgb 13.6 GM/dL (11.7-16.9) 08/19/16 06:00 Hct 40.8 % (35.4-49) 08/19/16 06:00 MCV 89.5 fl (80-96) 08/19/16 06:00 MCHC 33.3 g/dl (32.0-35.9) 08/19/16 06:00 RDW 15.1 % (11.9-15.9) 08/19/16 06:00 Plt Count 331 K/MM3 (134-434) 08/19/16 06:00 MPV 7.5 fl (7.5-11.1) 08/19/16 06:00 Urine Color Yellow 08/18/16 15:00 Urine Appearance Clear 08/18/16 15:00 Urine pH 5.0 (5.0-8.0) 08/18/16 15:00 Ur Specific [place] 1.025 (1.005-1.025) 08/18/16 15:00 Urine Protein Negative (NEGATIVE) 08/18/16 15:00 Urine Glucose (UA) Negative (NEGATIVE) 08/18/16 15:00 Urine Ketones Trace (NEGATIVE) H 08/18/16 15:00 Urine Blood Negative (NEGATIVE) 08/18/16 15:00 Urine Nitrite Negative (NEGATIVE) 08/18/16 15:00 Urine Bilirubin Negative (NEGATIVE) 08/18/16 15:00 Urine Urobilinogen 2.0 e.u/dl E.U./dl (0.2-1.0) 08/18/16 15:00 Ur Leukocyte Esterase Negative (NEGATIVE) 08/18/16 15:00 LABS PENDING Assessment: 08/19/16 10:11 WITHDRAWAL SYMPTOM Plan: CONTINUE DETOX
[2016-08-19] MEDS: PRENATAL VITAMINS W/ FOLIC ACID TABLET (FP) PO SCH (10:19)
[2016-08-19] MEDS: NICOTINE 21 MG/24 HOURS TOPICAL PATCH TD SCH (10:21)
[2016-08-19 10:49] LABS: ALK PHOS 76 U/L (45-117); ANION GAP 8 (8-16); BILIRUBIN,TOTAL 0.5 mg/dL (0.2-1.0); CALCIUM 9.4 mg/dL (8.5-10.1); CO2 29 mmol/L (21-32); COCKROFT - GAULT 130.49; CREATININE 0.7 mg/dL (0.7-1.3); GLUCOSE,RANDOM 114 mg/dL (74-106); SGOT/AST 21 U/L (15-37); SGPT/ALT 28 U/L (12-78); TOT PROT 7.1 g/dl (6.4-8.2)
--- NOTE | 2016-08-19 11:00 | EKG ---
Test Reason : Blood Pressure : / mmHG Vent. Rate : 067 BPM Atrial Rate : 067 BPM P-R Int : 148 ms QRS Dur : 084 ms QT Int : 468 ms P-R-T Axes : 066 066 043 degrees QTc Int : 494 ms NORMAL SINUS RHYTHM ANTERIOR INFARCT , AGE UNDETERMINED ABNORMAL ECG WHEN COMPARED WITH ECG OF 11-JUL-2016 13:13, NO SIGNIFICANT CHANGE WAS FOUND Confirmed by ARIELLE BAÑUELOS MD ([id number]) on 08/19/2016 10:59:33 AM Referred By: Neptali Morgan Confirmed By:ARIELLE BAÑUELOS MD
--- NOTE | 2016-08-19 18:17 | CONSULT ---
[facility] Psychiatric Consult - Data Date of interview: 08/19/16 Admission source: [facility] Identifying data: Another admission to [facility] for this 41 y/o male seeking detox treatment for alcohol,heroin,xanax,marijuana,phencyclidine and cocaine dependence.Patient is single without children,domiciled,unemployed and supported on food stamps. Substance Abuse History: - Smoking Cessation. Smoking history: Current every day smoker. Have you smoked in the past 12 months: Yes. Aproximately how many cigarettes per day: 10. Cigars Per Day: 0. Hx Chewing Tobacco Use: No. Initiated information on smoking cessation: Yes. 'Breaking Loose' booklet given : 08/18/16. - Substance & Tx. History. Hx Alcohol Use: Yes. Hx Substance Use : Yes. Substance Use Type: Alcohol, Heroin, Prescribed. - Substances Abused. Heroin. Route: Injection. Frequency: Daily. Amount used: 10 bags. Age of first use: 23. Date of Last Use: 08/17/16. Crack. Route: Smoking. Frequency: 3-6 times per week. Amount used: $50-80. Age of first use: 30. Date of Last Use: 08/17/16. PCP. Route: Smoking. Frequency: 1-3 times last 30 days. Amount used: $10. Age of first use: 17. Date of Last Use: 08/16. Alcohol-beer/vodka. Route: Oral. Frequency: Daily. Amount used: 2-6 pks./2 pts. Age of first use: 22. Date of Last Use: 08/17/16. Xanax. Route: Oral. Frequency: 3-6 times per week. Amount used: 4 mg. Age of first use: 41. Date of Last Use: 08/16/16. Marijuana. Route: Smoking. Frequency : Daily. Amount used: $10. Age of first use: 14. Date of Last Use: 08/16/16. Confirmed by patient. Medical History: Patient denies medical problems. Psychiatric History: Patient is known to be an unreliable historian.Vague history of psychiatric hospitalizations (known to [facility],as recently as June 2016).Diagnosed with Bipolar Disorder and PTSD (self-report) .Prescribed seroquel 300 mg po am/400 mg po hs.Questionable compliance.Mr Grove informs that he last took seroquel on his day of discharge from [facility] in July 2016 (07/12/16).No consistent history of OPD care for months.Patient denies history of suicide attempts. Physical/Sexual Abuse/Trauma History: Patient denies. Additional Comment: Urine Drug Screen Results: THC-Marijuana, PRISCILLA-Cocaine, OPI- Opiates, PCP-Phencyclidine, BZO-Benzodiazepines.Noted. Mental Status Exam - Mental Status Exam Alert and Oriented to: Time, Place, Person Cognitive Function: Good Patient Appearance: Disheveled, Inappropriate (bare-chested,lying in bed ; tattoos on arms/forearms) Mood: Withdrawn Affect: Mood Congruent Patient Behavior: Passive (indifferent), Cooperative (marginally cooperative) Speech Pattern: Clear Voice Loudness: Normal Thought Process: Goal Oriented Thought Disorder: Not Present Hallucinations: Denies Suicidal Ideation: Denies Homicidal Ideation: Denies Insight/Judgement: Poor Sleep: Poorly, Difficulty falling asleep Appetite: Good Muscle strength/Tone: Normal Gait/Station: Normal Psychiatric Findings - Problem List ([place] 1, 2,3) (1) Alcohol dependence with uncomplicated withdrawal Current Visit: Yes Status: Acute (2) Cocaine dependence Current Visit: Yes Status: Acute (3) Opioid dependence with withdrawal Current Visit: Yes Status: Acute (4) PCP (phencyclidine) abuse Current Visit: Yes Status: Acute (5) Cannabis dependence Current Visit: Yes Status: Acute (6) Nicotine dependence Current Visit: Yes Status: Chronic Qualifiers: Nicotine product type: cigarettes (7) Drug-induced mood disorder Current Visit: Yes Status: Acute (8) Schizophrenia Current Visit: Yes Status: Chronic (9) Post traumatic stress disorder (PTSD) Current Visit: No Status: Chronic Comment: Self-report. (10) Direct inguinal hernia Current Visit: No Status: Chronic (11) Insomnia Current Visit: Yes Status: Acute - Initial Treatment Plan Initial Treatment Plan: Psychoeducation.Detoxification.Will re-start seroquel at 200 mg po hs and titrate accordingly on a daily basis (patient recognizes that he has been non-compliant for several days).Side effects/benefits discussed with the patient.Agrees with careplan.Observation.
[2016-08-19] MEDS ORDERED: QUEtiapine FUMARATE 200 MG TABLET PO SCH (22:00)
[2016-08-19] MEDS: THIAMINE HCL 100 MG TABLET (FP) PO SCH (22:40)
[2016-08-19] MEDS: ZOLPIDEM TARTRATE 10 MG TABLET (PARK CARE ONLY) PO PRN (23:10)
[2016-08-20] MEDS: chlordiazePOXIDE HCL 25 MG CAPSULE PO SCH ×2 (05:19→10:27)
[2016-08-20] MEDS: PRENATAL VITAMINS W/ FOLIC ACID TABLET (FP) PO SCH (10:27)
--- NOTE | 2016-08-20 10:27 | PN ---
[facility] CIWA - CIWA Score Nausea/Vomitin Muscle Tremors: 3 Anxiety: 3 Agitation: 2 Paroxysmal Sweats: 1-Minimal Palms Moist Orientation: 0-Oriented Tacttile Disturbances: 1-Very Mild Itch/Numbness Auditory Disturbances: 1-Very Mild Visual Disturbances: 1-Very Mild Sensitivity Headache: 2-Mild CIWA-Ar Total Score: 17 BHS COWS - Scale Resting Pulse: 1= [place] 81-100 Sweatin= Chills/Flushing Restless Observation: 3= Extraneous Movement Pupil Size: 1= Pupils >than Normal Bone or Joint Aches: 2= Severe Diffuse Aches Runny Nose/ Eye Tearin= Runny Nose/Eyes GI Upset > 30mins: 2= Nausea/Diarrhea Tremor Observation of Outstretched Hands: 2= Slight Tremor Visible Yawning Observation: 1= 1-2x During Session Anxiety or Irritability: 2=Irritable/Anxious Goose Flesh Skin: 0=Smooth Skin COWS Score: 17 [facility] Progress Note (SOAP) Subjective: alert,irritable,anxious,interrupted sleep,pain in the body and back,tremor Objective: 08/20/16 10:25 Vital Signs Temperature 97.9 F 08/20/16 09:37 Pulse Rate 87 08/20/16 09:37 Respiratory Rate 16 08/20/16 09:37 Blood Pressure 138/91 08/20/16 09:37 O2 Sat by Pulse Oximetry (%) Laboratory Last Values WBC 6.0 K/mm3 (4.0-10.0) 08/19/16 06:00 RBC 4.56 M/mm3 (4.00-5.60) 08/19/16 06:00 Hgb 13.6 GM/dL (11.7-16.9) 08/19/16 06:00 Hct 40.8 % (35.4-49) 08/19/16 06:00 MCV 89.5 fl (80-96) 08/19/16 06:00 MCHC 33.3 g/dl (32.0-35.9) 08/19/16 06:00 RDW 15.1 % (11.9-15.9) 08/19/16 06:00 Plt Count 331 K/MM3 (134-434) 08/19/16 06:00 MPV 7.5 fl (7.5-11.1) 08/19/16 06:00 Sodium 138 mmol/L (136-145) 08/19/16 06:00 Potassium 4.4 mmol/L (3.5-5.1) 08/19/16 06:00 Chloride 101 mmol/L (98-107) 08/19/16 06:00 Carbon Dioxide 29 mmol/L (21-32) 08/19/16 06:00 Anion Gap 8 (8-16) 08/19/16 06:00 BUN 11 mg/dL (7-18) D 08/19/16 06:00 Creatinine 0.7 mg/dL (0.7-1.3) 08/19/16 06:00 Creat Clearance w eGFR > 60 (>60) 08/19/16 06:00 Random Glucose 114 mg/dL (74-106) H D 08/19/16 06:00 Calcium 9.4 mg/dL (8.5-10.1) 08/19/16 06:00 Total Bilirubin 0.5 mg/dL (0.2-1.0) D 08/19/16 06:00 AST 21 U/L (15-37) 08/19/16 06:00 ALT 28 U/L (12-78) 08/19/16 06:00 Alkaline Phosphatase 76 U/L (45-117) D 08/19/16 06:00 Total Protein 7.1 g/dl (6.4-8.2) 08/19/16 06:00 Albumin 4.0 g/dl (3.4-5.0) 08/19/16 06:00 Urine Color Yellow 08/18/16 15:00 Urine Appearance Clear 08/18/16 15:00 Urine pH 5.0 (5.0-8.0) 08/18/16 15:00 Ur Specific [place] 1.025 (1.005-1.025) 08/18/16 15:00 Urine Protein Negative (NEGATIVE) 08/18/16 15:00 Urine Glucose (UA) Negative (NEGATIVE) 08/18/16 15:00 Urine Ketones Trace (NEGATIVE) H 08/18/16 15:00 Urine Blood Negative (NEGATIVE) 08/18/16 15:00 Urine Nitrite Negative (NEGATIVE) 08/18/16 15:00 Urine Bilirubin Negative (NEGATIVE) 08/18/16 15:00 Urine Urobilinogen 2.0 e.u/dl E.U./dl (0.2-1.0) 08/18/16 15:00 Ur Leukocyte Esterase Negative (NEGATIVE) 08/18/16 15:00 RPR Titer Nonreactive (NONREACTIVE) 08/19/16 06:00 Assessment: 08/20/16 10:26 withdrawal symptom Plan: continue detox,bgm 114,fasting glucose in am
[2016-08-20] MEDS: NICOTINE 21 MG/24 HOURS TOPICAL PATCH TD SCH (10:28)
[2016-08-20] MEDS: METHADONE HCL 5 MG TABLET (FOR DETOX USE ONLY) PO SCH (10:28)
[2016-08-20] MEDS: chlordiazePOXIDE 5 MG CAPSULE PO SCH ×2 (17:59→22:26)
[2016-08-20] MEDS: ZOLPIDEM TARTRATE 10 MG TABLET (PARK CARE ONLY) PO PRN (22:26)
[2016-08-20] MEDS: THIAMINE HCL 100 MG TABLET (FP) PO SCH (22:26)
[2016-08-20] MEDS: QUEtiapine FUMARATE 300 MG TABLET PO SCH (22:26)
[2016-08-21] MEDS: chlordiazePOXIDE 5 MG CAPSULE PO SCH ×2 (05:27→10:19)
[2016-08-21] MEDS: PRENATAL VITAMINS W/ FOLIC ACID TABLET (FP) PO SCH (10:19)
[2016-08-21] MEDS: METHADONE HCL 5 MG TABLET (FOR DETOX USE ONLY) PO SCH (10:19)
[2016-08-21] MEDS: NICOTINE 21 MG/24 HOURS TOPICAL PATCH TD SCH (10:20)
--- NOTE | 2016-08-21 11:58 | PN ---
[facility] Progress Note (SOAP) Subjective: irritable agitation sweats Objective: 08/21/16 11:57 Vital Signs Temperature 98.2 F 08/21/16 09:50 Pulse Rate 78 08/21/16 09:50 Respiratory Rate 16 08/21/16 09:50 Blood Pressure 116/80 08/21/16 09:50 O2 Sat by Pulse Oximetry (%) awake/alert ambulating no acute distress Assessment: 08/21/16 11:59 withdrawal sx Plan: continue detox increase fluids
[2016-08-21] MEDS: chlordiazePOXIDE HCL 10 MG CAPSULE PO SCH ×2 (17:31→22:17)
[2016-08-21] MEDS: QUEtiapine FUMARATE 300 MG TABLET PO SCH (22:16)
[2016-08-21] MEDS: THIAMINE HCL 100 MG TABLET (FP) PO SCH (22:16)
[2016-08-21] MEDS: ZOLPIDEM TARTRATE 10 MG TABLET (PARK CARE ONLY) PO PRN (22:16)
[2016-08-22] MEDS: chlordiazePOXIDE HCL 10 MG CAPSULE PO SCH ×2 (06:53→11:00)
[2016-08-22] MEDS: PRENATAL VITAMINS W/ FOLIC ACID TABLET (FP) PO SCH (09:44)
[2016-08-22] MEDS ORDERED: METHADONE HCL 10 MG TABLET (FOR DETOX USE ONLY) PO SCH (10:00)
--- NOTE | 2016-08-22 10:59 | PN ---
[facility] Progress Note (SOAP) Subjective: sweats interrupted sleep body aches Objective: 08/22/16 10:58 Vital Signs Temperature 97.9 F 08/22/16 07:30 Pulse Rate 69 08/22/16 07:30 Respiratory Rate 16 08/22/16 07:30 Blood Pressure 96/56 08/22/16 08:07 O2 Sat by Pulse Oximetry (%) awake/alert ambulating no acute distress Assessment: 08/22/16 10:58 mild withdrawal sx Plan: continue detox increase fluids d/c in am
[2016-08-22] MEDS: NICOTINE 21 MG/24 HOURS TOPICAL PATCH TD SCH (13:07)
--- NOTE | 2016-08-22 14:50 | PN ---
[facility] Progress Note Note: Psychiatry Attending's note : Asked to see this patient. Issue : wants script for ambien at discharge. Met briefly with the patient.Medications discussed. Known for medication-seeking (selective). Chronically non-adherent to aftercare. Benefits of sleep hygiene are discussed with patient. Offered titration of seroquel.He declines. Script for ambien will not be issued at discharge. Patient made aware.Referred to OPD provider.
[2016-08-22] MEDS: QUEtiapine FUMARATE 300 MG TABLET PO SCH (22:21)
[2016-08-22] MEDS: ZOLPIDEM TARTRATE 10 MG TABLET (PARK CARE ONLY) PO PRN (22:21)
[2016-08-22] MEDS: THIAMINE HCL 100 MG TABLET (FP) PO SCH (22:21)
[2016-08-23] MEDS ORDERED: METHADONE HCL 5 MG TABLET (FOR DETOX USE ONLY) PO SCH (06:00)
[2016-08-23 06:22] VITALS: BP 100/58; PULSE 71; TEMP 97.5
--- NOTE | 2016-08-23 08:48 | DS ---
[facility] Detox Discharge Summary Admission Date: 08/18/16 Discharge Date: 08/23/16 - History Present History: Alcohol Dependence, Cannabis Dependence, Cocaine Dependence, Opioid Dependence Pertinent Past History: Schizophrenia - Physical Exam Results Vital Signs: Vital Signs Temperature 97.5 F L 08/23/16 06:22 Pulse Rate 71 08/23/16 06:22 Respiratory Rate 16 08/23/16 06:22 Blood Pressure 100/58 08/23/16 06:22 O2 Sat by Pulse Oximetry (%) Pertinent Admission Physical Exam Findings: Withdrawal sx Laboratory Last Values WBC 6.0 K/mm3 (4.0-10.0) 08/19/16 06:00 RBC 4.56 M/mm3 (4.00-5.60) 08/19/16 06:00 Hgb 13.6 GM/dL (11.7-16.9) 08/19/16 06:00 Hct 40.8 % (35.4-49) 08/19/16 06:00 MCV 89.5 fl (80-96) 08/19/16 06:00 MCHC 33.3 g/dl (32.0-35.9) 08/19/16 06:00 RDW 15.1 % (11.9-15.9) 08/19/16 06:00 Plt Count 331 K/MM3 (134-434) 08/19/16 06:00 MPV 7.5 fl (7.5-11.1) 08/19/16 06:00 Sodium 138 mmol/L (136-145) 08/19/16 06:00 Potassium 4.4 mmol/L (3.5-5.1) 08/19/16 06:00 Chloride 101 mmol/L (98-107) 08/19/16 06:00 Carbon Dioxide 29 mmol/L (21-32) 08/19/16 06:00 Anion Gap 8 (8-16) 08/19/16 06:00 BUN 11 mg/dL (7-18) D 08/19/16 06:00 Creatinine 0.7 mg/dL (0.7-1.3) 08/19/16 06:00 Creat Clearance w eGFR > 60 (>60) 08/19/16 06:00 Random Glucose 114 mg/dL (74-106) H D 08/19/16 06:00 Fasting Glucose 85 mg/dL (70-105) 08/21/16 07:00 Calcium 9.4 mg/dL (8.5-10.1) 08/19/16 06:00 Total Bilirubin 0.5 mg/dL (0.2-1.0) D 08/19/16 06:00 AST 21 U/L (15-37) 08/19/16 06:00 ALT 28 U/L (12-78) 08/19/16 06:00 Alkaline Phosphatase 76 U/L (45-117) D 08/19/16 06:00 Total Protein 7.1 g/dl (6.4-8.2) 08/19/16 06:00 Albumin 4.0 g/dl (3.4-5.0) 08/19/16 06:00 Urine Color Yellow 08/18/16 15:00 Urine Appearance Clear 08/18/16 15:00 Urine pH 5.0 (5.0-8.0) 08/18/16 15:00 Ur Specific [place] 1.025 (1.005-1.025) 08/18/16 15:00 Urine Protein Negative (NEGATIVE) 08/18/16 15:00 Urine Glucose (UA) Negative (NEGATIVE) 08/18/16 15:00 Urine Ketones Trace (NEGATIVE) H 08/18/16 15:00 Urine Blood Negative (NEGATIVE) 08/18/16 15:00 Urine Nitrite Negative (NEGATIVE) 08/18/16 15:00 Urine Bilirubin Negative (NEGATIVE) 08/18/16 15:00 Urine Urobilinogen 2.0 e.u/dl E.U./dl (0.2-1.0) 08/18/16 15:00 Ur Leukocyte Esterase Negative (NEGATIVE) 08/18/16 15:00 RPR Titer Nonreactive (NONREACTIVE) 08/19/16 06:00 labs noted - Treatment Hospital Course: Detox Protocol Followed, Detoxed Safely, Responded well, Discharged Condition Good, Rehab Referral Accepted Patient has Accepted a Rehab Referral to: [facility] - Medication Discharge Medications: Ambulatory Orders Quetiapine Fumarate [Seroquel -] 200 mg PO HS #30 tab 07/12/16 Quetiapine Fumarate [Seroquel -] 300 mg PO HS #30 tab 08/20/16 - Diagnosis (1) Alcohol dependence with uncomplicated withdrawal Current Visit: Yes Status: Acute (2) Cannabis dependence Current Visit: Yes Status: Acute (3) Cocaine dependence Current Visit: Yes Status: Acute (4) Insomnia Current Visit: Yes Status: Acute (5) Opioid dependence with withdrawal Current Visit: Yes Status: Acute (6) Nicotine dependence Current Visit: Yes Status: Chronic Qualifiers: Nicotine product type: cigarettes (7) Schizophrenia Current Visit: Yes Status: Chronic Qualified Code(s): - - AMA Did Patient Leave Against Medical Advice: No
== END 2016-08-23 08:50 | disposition home or self-care (01) | DRG 773 ==
LOC: YASAS 11:27 → Y6N 14:49
PROVIDERS: ADMIT Internal Medicine; ATTEND Internal Medicine
PROC: HZ2ZZZZ Detoxification Services for Substance Abuse Treatment (ICD-10-PCS; principal; 2016-08-18)
DX: F11.23 Opioid dependence with withdrawal (principal); F10.230 Alcohol dependence with withdrawal, uncomplicated; F14.20 Cocaine dependence, uncomplicated; F12.20 Cannabis dependence, uncomplicated; F16.10 Hallucinogen abuse, uncomplicated; F17.210 Nicotine dependence, cigarettes, uncomplicated; F20.9 Schizophrenia, unspecified; F19.24 Other psychoactive substance dependence with psychoactive substance-induced mood disorder; F43.10 Post-traumatic stress disorder, unspecified; G47.00 Insomnia, unspecified; Z91.5 Personal history of self-harm
CPT/HCPCS: 36415; 80053; 81003; 82947; 85027; 86593; 93005; 93010

== ENCOUNTER 2016-11-03 10:49 | Inpatient (IN) | payer OTHER ==
[2016-11-03 11:36] VITALS: BMI 24.7
--- NOTE | 2016-11-03 14:31 | HP ---
COWS - Scale Resting Pulse: 0= GA 80 or Below Sweatin= Chills/Flushing Restless Observation: 3= Extraneous Movement Pupil Size: 2= Moderately Dilated Bone or Joint Aches: 4=Acute Joint/Muscle Pain Runny Nose/ Eye Tearin= Runny Nose/Eyes GI Upset > 30mins: 1= Stomach Cramp Tremor Observation: 2= Slight Tremor Visible Yawning Observation: 1= 1-2x During Session Anxiety or Irritability: 1=Feels Anxious/Irritable Goose Flesh Skin: 0=Smooth Skin COWS Score: 17 CIWA Score - CIWA Score Nausea/Vomitin (N/V) Muscle Tremors: 4-Moderate,w/Arms Extend Anxiety: 4-Mod. Anxious/Guarded Agitation: 2 Paroxysmal Sweats: No Perspiration Orientation: 0-Oriented Tacttile Disturbances: 3-Moderate Itch/Numb/Burn Auditory Disturbances: 0-None Visual Disturbances: 0-None Headache: 2-Mild CIWA-Ar Total Score: 20 Admission ROS BHS - HPI Chief Complaint: DETOX TX FOR HEROIN AND ALCOHOL DEPENDENCE Allergies/Adverse Reactions: Allergies Allergy/AdvReac Type Severity Reaction Status Date / Time No Known Allergies Allergy Verified 11/03/16 13:42 History of Present Illness: 41 Y/O H/M WITH A HX OF HEROIN.ALCOHOL AND COCAINE DEPENDENCE SEEING DETOX TX Exam Limitations: No Limitations - Ebola screening Have you traveled outside of the country in the last 21 days: No Have you had contact with anyone from an Ebola affected area: No Have you been sick,other than usual withdrawal symptoms: No Do you have a fever: No - Review of Systems Constitutional: Chills, Loss of Appetite, Night Sweats, Changes in sleep, Unintentional Wgt. 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) Neuro: reports: Headache, Tremors, Dizziness Endocrine: reports: No Symptoms Reported Hematology: reports: No Symptoms Reported Psychiatric: reports: Agitated, Anxious Other Systems: Reviewed and Negative Patient History - Patient Medical History Hx Anemia: No Hx Asthma: No Hx Chronic Obstructive Pulmonary Disease (COPD): No Hx Cancer: No Hx Cardiac Disorders: No Hx Congestive Heart Failure: No Hx Hypertension: No Hx Hypercholesterolemia: No Hx Pacemaker: No HX Cerebrovascular Accident: No Hx Seizures: Yes (2 DAYS AGO) Hx Dementia: No Hx Diabetes: No Hx Gastrointestinal Disorders: No Hx Liver Disease: No Hx Genitourinary Disorders: No Hx Sexually Transmitted Disorders: No Hx Renal Disease (ESRD): No Hx Thyroid Disease: No Hx Human Immunodeficiency Virus (HIV): No (NEGATIVE HX) Hx Hepatitis C: No (NEGATIVE) Hx Depression: Yes (ON MED) Hx Suicide Attempt: No (DENIES) Hx Bipolar Disorder: Yes Hx Schizophrenia: Yes - Patient Surgical History Past Surgical History: No Hx Neurologic Surgery: No Hx Cataract Extraction: No Hx Cardiac Surgery: No Hx Lung Surgery: No Hx Breast Surgery: No Hx Breast Biopsy: No Hx Abdominal Surgery: No Hx Appendectomy: No Hx Cholecystectomy: No Hx Genitourinary Surgery: No Hx Orthopedic Surgery: No Anesthesia Reaction: No - PPD History Previous Implant?: Yes Documented Results: Negative w/proof Implanted On Prior R Admission?: Yes Date: 07/13/16 Results: 0 mm PPD to be Administered?: No - Reproductive History Patient is a Female of Child Bearing Age (11 -55 yrs old): No (male) Patient : (N/A) - Smoking Cessation Smoking history: Current every day smoker Have you smoked in the past 12 months: Yes Aproximately how many cigarettes per day: 20 Cigars Per Day: 0 Hx Chewing Tobacco Use: No Initiated information on smoking cessation: Yes 'Breaking Loose' booklet given: 11/03/16 - Substance & Tx. History Hx Alcohol Use: Yes (VODKA) Hx Substance Use: Yes (HEROIN/COCAINE) Substance Use Type: Alcohol, Cocaine, Heroin Hx Substance Use Treatment: Yes (LAST TX AT [facility] DETOX/REHAB 2-3 MONTHS AGO) - Substances Abused Heroin Route: Injection Frequency: Daily Amount used: 30 baGS Age of first use: 23 Date of Last Use: 11/02/16 Alcohol Route: Oral Frequency: Daily Amount used: VODKA(2 PINTS) Age of first use: 26 Date of Last Use: 11/02/16 Cocaine Route: Smoking Frequency: Daily Amount used: $40 Age of first use: 29 Date of Last Use: 11/02/16 Family Disease History - Family Disease History Family History: Denies Admission Physical Exam [facility] - Vital Signs Vital Signs: Vital Signs - 24 hr 11/03/16 11:31 Temperature 97.8 F Pulse Rate 70 Respiratory 18 Rate Blood Pressure 112/66 - Physical General Appearance: Yes: Moderate Distress, Irritable, Anxious HEENTM: Yes: EOMI, Normocephalic, LOYDA, Pharynx Normal, Nasal Congestion, Rhinorrhea Respiratory: Yes: Chest Non-Tender, Lungs Clear, Normal Breath Sounds, No Respiratory Distress Neck: Yes: No masses,lesions,Nodules, Supple, Trachea in good position Breast: Yes: Breast Exam Deferred Cardiology: Yes: Regular Rhythm, Regular Rate, S1, S2 Abdominal: Yes: Normal Bowel Sounds, Non Tender, Soft Genitourinary: Yes: Other (N/C) Back: Yes: Within Normal Limits Musculoskeletal: Yes: full range of Motion, Gait Steady Extremities: Yes: Normal Range of Motion, Non-Tender, Tremors Neurological: Yes: tester sound II-XII NML intact, Fully Oriented, Alert, Motor Strength 5/5 Integumentary: Yes: Dry, Warm, Track Becker (BOTH ANTECUBITAL SPACES) Lymphatic: Yes: Within Normal Limits - Diagnostic (1) Alcohol dependence with uncomplicated withdrawal Current Visit: Yes Status: Acute (2) Opioid dependence with withdrawal Current Visit: Yes Status: Acute (3) Weight loss Current Visit: Yes Status: Chronic (4) Nicotine dependence Current Visit: Yes Status: Acute Qualifiers: Nicotine product type: cigarettes Substance use status: in withdrawal Qualified Code(s): F17.213 - Nicotine dependence, cigarettes, with withdrawal (5) Cocaine dependence, uncomplicated Current Visit: Yes Status: Acute Cleared for Admission [facility] - Detox or Rehab [facility] Level of Care: Medically Managed Detox Regimen/Protocol: Methadone/Librium S Breath Alcohol Content Breath Alcohol Content: 0 Urine Drug Screen - Results Drug Screen Negative: No Urine Drug Screen Results: PRISCILLA-Cocaine, OPI-Opiates, BZO-Benzodiazepines
[2016-11-03] MEDS ORDERED: P-EPHED 60MG/TRIPROLIDI 2.5MG TABLET PO PRN (14:50)
[2016-11-03] MEDS ORDERED: MAGNESIUM CITRATE 300 ML BOTTLE PO PRN (14:50)
[2016-11-03] MEDS ORDERED: diphenhydrAMINE HCL 50 MG CAPSULE PO PRN (14:50)
[2016-11-03] MEDS ORDERED: NICOTINE POLACRILEX 4 MG GUM BC PRN (14:50)
[2016-11-03] MEDS ORDERED: chlordiazePOXIDE HCL 25 MG CAPSULE PO PRN (14:50)
[2016-11-03] MEDS ORDERED: hydrOXYzine PAMOATE 25 MG CAPSULE (FP) PO PRN (14:50)
[2016-11-03] MEDS ORDERED: LOPERAMIDE HCL 2 MG CAPSULE PO PRN (14:50)
[2016-11-03] MEDS ORDERED: MENTHOL/PHENOL 1 EACH UD MM PRN (14:50)
[2016-11-03] MEDS ORDERED: MAGNESIUM HYDROX 2400MG/30ML ORAL SUSPENSION 30 ML CUP PO PRN (14:50)
[2016-11-03] MEDS ORDERED: ACETAMINOPHEN 325 MG TABLET (FP) PO PRN (14:50)
[2016-11-03] MEDS ORDERED: MAG HYDROX/AL HYDROX/SIMETH 30 ML UNIT-DOSE CUP PO PRN (14:50)
[2016-11-03] MEDS ORDERED: guaiFENesin/D-METHORPHAN HB 10 ML UNIT-DOSE CUPS PO PRN (14:50)
[2016-11-03] MEDS ORDERED: IBUPROFEN 400 MG TABLET (FP) PO PRN (14:50)
[2016-11-03] MEDS: NICOTINE 21 MG/24 HOURS TOPICAL PATCH TD SCH (15:41)
[2016-11-03] MEDS ORDERED: chlordiazePOXIDE HCL 25 MG CAPSULE PO ONE (16:00)
[2016-11-03] MEDS ORDERED: METHADONE HCL 10 MG TABLET (FOR DETOX USE ONLY) PO ONE ×2 (16:00→23:00)
[2016-11-03] MEDS: chlordiazePOXIDE HCL 25 MG CAPSULE PO SCH ×2 (17:31→22:13)
--- NOTE | 2016-11-03 17:48 | CONSULT ---
[facility] Psychiatric Consult - Data Date of interview: 11/03/16 Admission source: [facility] Identifying data: Patient is approached at bedside for psychiatric interview.He refused.' I don't have psychiatric problems.I don't need psychiatrists." Nurse in charge is made aware.
--- NOTE | 2016-11-03 19:06 | EKG ---
Test Reason : Blood Pressure : / mmHG Vent. Rate : 064 BPM Atrial Rate : 064 BPM P-R Int : 150 ms QRS Dur : 086 ms QT Int : 400 ms P-R-T Axes : 052 055 035 degrees QTc Int : 412 ms NORMAL SINUS RHYTHM NORMAL ECG WHEN COMPARED WITH ECG OF 18-AUG-2016 14:38, NO SIGNIFICANT CHANGE WAS FOUND Confirmed by ARIELLE BAÑUELOS MD ([id number]) on 11/03/2016 7:06:11 PM Referred By: Bowen Bridges Confirmed By:ARIELLE BAÑUELOS MD
[2016-11-03 21:03] LABS: URINE APPEARANCE CLOUDY; URINE BILIRUBIN NEGATIVE (NEGATIVE); URINE BLOOD NEGATIVE (NEGATIVE); URINE COLOR DKYELLOW; URINE GLUCOSE (UA) NEGATIVE (NEGATIVE); URINE KETONE NEGATIVE (NEGATIVE); URINE LEUK ESTERASE NEGATIVE (NEGATIVE); URINE NITRITE NEGATIVE (NEGATIVE); URINE PROTEIN NEGATIVE (NEGATIVE)
[2016-11-03] MEDS: BACITRACIN 0.9 GM PACKET TP SCH (22:13)
[2016-11-03] MEDS: THIAMINE HCL 100 MG TABLET (FP) PO SCH (22:13)
[2016-11-04] MEDS: chlordiazePOXIDE HCL 25 MG CAPSULE PO SCH ×4 (05:39→22:24)
[2016-11-04 09:24] LABS: HIV 1 & 2 AB NEGATIVE; HIV 1 AGp24 NEGATIVE
[2016-11-04 09:59] LABS: MCH 29.2 pg (25.7-33.7); MCHC 33.4 g/dl (32.0-35.9); MEAN CELL VOLUME 87.6 fl (80-96); MEAN PLT VOLUME 7.5 fl (7.5-11.1); PLATELET COUNT 428 K/MM3 (134-434); RDW 13.8 % (11.9-15.9)
[2016-11-04] MEDS ORDERED: METHADONE HCL 10 MG TABLET (FOR DETOX USE ONLY) PO SCH (10:00)
[2016-11-04] MEDS: BACITRACIN 0.9 GM PACKET TP SCH ×2 (10:16→23:08)
[2016-11-04] MEDS: PRENATAL VITAMINS W/ FOLIC ACID TABLET (FP) PO SCH (10:16)
[2016-11-04] MEDS: NICOTINE 21 MG/24 HOURS TOPICAL PATCH TD SCH (10:17)
[2016-11-04 10:39] LABS: ALBUMIN 3.4 g/dl (3.4-5.0); ALK PHOS 77 U/L (45-117); ANION GAP 7 (8-16); BILIRUBIN,TOTAL 0.3 mg/dL (0.2-1.0); CALCIUM 9.3 mg/dL (8.5-10.1); CO2 28 mmol/L (21-32); CREATININE 0.7 mg/dL (0.7-1.3); GLUCOSE,RANDOM 93 mg/dL (74-106); SGOT/AST 14 U/L (15-37); SGPT/ALT 21 U/L (12-78); TOT PROT 7.1 g/dl (6.4-8.2)
--- NOTE | 2016-11-04 10:42 | PN ---
[facility] CIWA - CIWA Score Nausea/Vomitin Muscle Tremors: 4-Moderate,w/Arms Extend Anxiety: 4-Mod. Anxious/Guarded Agitation: 4-Moderately Restless Paroxysmal Sweats: 3 Orientation: 0-Oriented Tacttile Disturbances: 0-None Auditory Disturbances: 0-None Visual Disturbances: 0-None Headache: 0-None Present CIWA-Ar Total Score: 18 S COWS - Scale Resting Pulse: 0= SC 80 or Below Sweatin= Chills/Flushing Restless Observation: 1= Difficult to Sit Still Pupil Size: 1= Pupils >than Normal Bone or Joint Aches: 1= Mild Discomfort Runny Nose/ Eye Tearin= Nasal Congestion GI Upset > 30mins: 2= Nausea/Diarrhea Tremor Observation of Outstretched Hands: 2= Slight Tremor Visible Yawning Observation: 1= 1-2x During Session Anxiety or Irritability: 2=Irritable/Anxious Goose Flesh Skin: 3=Piloerection COWS Score: 15 S Progress Note (SOAP) Subjective: nausea, sweats, interrupted sleep, anxiety, tremors Objective: 11/04/16 10:40 Laboratory Tests 11/03/16 11/03/16 11/04/16 13:00 20:47 06:00 WBC 7.0 RBC 4.74 Hgb 13.8 Hct 41.5 MCV 87.6 MCH 29.2 MCHC 33.4 RDW 13.8 Plt Count 428 D MPV 7.5 Sodium Potassium Chloride Urine Color Dkyellow Urine Appearance Cloudy Urine pH 8.0 D Ur Specific [place] 1.015 Urine Protein Negative Urine Glucose (UA) Negative Urine Ketones Negative Urine Blood Negative Urine Nitrite Negative Urine Bilirubin Negative Urine Urobilinogen 2.0 Ur Leukocyte Esterase Negative HIV 1&2 Antibody Screen Negative HIV P24 Antigen Negative 11/04/16 06:00 WBC RBC Hgb Hct MCV MCH MCHC RDW Plt Count MPV Sodium 139 Potassium 4.2 Chloride 104 Urine Color Urine Appearance Urine pH Ur Specific [place] Urine Protein Urine Glucose (UA) Urine Ketones Urine Blood Urine Nitrite Urine Bilirubin Urine Urobilinogen Ur Leukocyte Esterase HIV 1&2 Antibody Screen HIV P24 Antigen 11/04/16 10:41 Vital Signs - 24 hr 11/03/16 11/03/16 11/03/16 11:31 15:41 17:54 Temperature 97.8 F 98.8 F 98.5 F Pulse Rate 70 76 60 Respiratory 18 18 16 Rate Blood Pressure 112/66 108/77 114/79 11/03/16 11/04/16 11/04/16 22:18 00:30 03:25 Temperature 98 F Pulse Rate 67 Respiratory 18 18 18 Rate Blood Pressure 117/76 11/04/16 11/04/16 06:32 09:22 Temperature 97.3 F L 99.7 F H Pulse Rate 64 65 Respiratory 16 18 Rate Blood Pressure 114/69 109/78 Assessment: 11/04/16 10:41 withdrawal sx Plan: cont detox, fluids, encourage ambulation, symptomatic relief of withdrawal
[2016-11-04] MEDS: THIAMINE HCL 100 MG TABLET (FP) PO SCH (22:24)
[2016-11-05] MEDS: chlordiazePOXIDE HCL 25 MG CAPSULE PO SCH ×2 (06:01→10:21)
[2016-11-05 09:55] VITALS: BP 104/73; PULSE 66; TEMP 99.6
[2016-11-05] MEDS ORDERED: METHADONE HCL 5 MG TABLET (FOR DETOX USE ONLY) PO SCH (10:00)
[2016-11-05] MEDS ORDERED: ONDANSETRON *ODT* 4 MG TABLET SL PRN (10:19)
[2016-11-05] MEDS: NICOTINE 21 MG/24 HOURS TOPICAL PATCH TD SCH (10:21)
[2016-11-05] MEDS: PRENATAL VITAMINS W/ FOLIC ACID TABLET (FP) PO SCH (10:21)
[2016-11-05] MEDS: BACITRACIN 0.9 GM PACKET TP SCH (10:21)
--- NOTE | 2016-11-05 12:29 | DS ---
[facility] Detox Discharge Summary Admission Date: 11/03/16 Discharge Date: 11/05/16 - History Present History: Alcohol Dependence, Cocaine Dependence, Opioid Dependence Additional Comments: PATIENT DID NOT WISH TO STAY TO COMPLETE DETOX REGIMEN. PATIENT ADVISED TO GO IMMEDIATELY TO NEAREST ER SHOULD ANY INTOLERABLE DETOX SYMPTOMS DEVELOP AT ANY TIME. PATIENT ALSO ADVISED TO FOLLOW-UP WITH PROBATE PAR[facility]GAL AT [facility] ( PATIENT UNABLE TO RECALL [facility] PARALEGAL'S NAME AT THIS TIME) FOR MEDICAL EVALUATION. PATIENT LEFT UNIT IN STABLE MEDICAL CONDITION. Pertinent Past History: History of Seizures, Depression, Bipolar Disorder, Schizophrenia. - Physical Exam Results Vital Signs: Vital Signs Temperature 99.6 F 11/05/16 09:54 Pulse Rate 66 11/05/16 09:54 Respiratory Rate 18 11/05/16 09:54 Blood Pressure 104/73 11/05/16 09:54 O2 Sat by Pulse Oximetry (%) Pertinent Admission Physical Exam Findings: WITHDRAWAL SYMPTOMS. Laboratory Tests 11/03/16 11/03/16 11/04/16 13:00 20:47 06:00 WBC 7.0 RBC 4.74 Hgb 13.8 Hct 41.5 MCV 87.6 MCH 29.2 MCHC 33.4 RDW 13.8 Plt Count 428 D MPV 7.5 Sodium Potassium Chloride Carbon Dioxide Anion Gap BUN Creatinine Creat Clearance w eGFR Random Glucose Calcium Total Bilirubin AST ALT Alkaline Phosphatase Total Protein Albumin Urine Color Dkyellow Urine Appearance Cloudy Urine pH 8.0 D Ur Specific [place] 1.015 Urine Protein Negative Urine Glucose (UA) Negative Urine Ketones Negative Urine Blood Negative Urine Nitrite Negative Urine Bilirubin Negative Urine Urobilinogen 2.0 Ur Leukocyte Esterase Negative RPR Titer HIV 1&2 Antibody Screen Negative HIV P24 Antigen Negative 11/04/16 11/04/16 06:00 06:00 WBC RBC Hgb Hct MCV MCH MCHC RDW Plt Count MPV Sodium 139 Potassium 4.2 Chloride 104 Carbon Dioxide 28 Anion Gap 7 L BUN 7 D Creatinine 0.7 Creat Clearance w eGFR > 60 Random Glucose 93 Calcium 9.3 Total Bilirubin 0.3 D AST 14 L D ALT 21 D Alkaline Phosphatase 77 Total Protein 7.1 Albumin 3.4 Urine Color Urine Appearance Urine pH Ur Specific [place] Urine Protein Urine Glucose (UA) Urine Ketones Urine Blood Urine Nitrite Urine Bilirubin Urine Urobilinogen Ur Leukocyte Esterase RPR Titer Nonreactive HIV 1&2 Antibody Screen HIV P24 Antigen LABS NOTED. - Treatment Hospital Course: Detoxed Safely - Medication Discharge Medications: Ambulatory Orders Quetiapine Fumarate [Seroquel -] 300 mg PO BID 11/03/16 - Diagnosis (1) Alcohol dependence with uncomplicated withdrawal Status: Acute (2) Cocaine dependence, uncomplicated Status: Acute (3) Nicotine dependence Status: Chronic Qualifiers: Nicotine product type: cigarettes Substance use status: in withdrawal Qualified Code(s): F17.213 - Nicotine dependence, cigarettes, with withdrawal (4) Opioid dependence with withdrawal Status: Acute (5) Weight loss Status: Chronic - AMA Did Patient Leave Against Medical Advice: Yes (PATIENT DID NOT WISH TO STAY TO COMPLETE DETOX REGIMEN.)
[2016-11-05] MEDS ORDERED: chlordiazePOXIDE 5 MG CAPSULE PO SCH (17:00)
[2016-11-06] MEDS ORDERED: chlordiazePOXIDE HCL 10 MG CAPSULE PO SCH (17:00)
[2016-11-07] MEDS ORDERED: METHADONE HCL 10 MG TABLET (FOR DETOX USE ONLY) PO SCH (10:00)
[2016-11-08] MEDS ORDERED: METHADONE HCL 5 MG TABLET (FOR DETOX USE ONLY) PO SCH (06:00)
== END 2016-11-05 10:51 | disposition left against medical advice (07) | DRG 770 ==
LOC: YASAS 10:49 → Y3N 14:49
PROVIDERS: ADMIT Internal Medicine Addiction Medicine; ATTEND Internal Medicine Addiction Medicine
PROC: HZ2ZZZZ Detoxification Services for Substance Abuse Treatment (ICD-10-PCS; principal; 2016-11-03)
DX: F11.23 Opioid dependence with withdrawal (principal); F10.230 Alcohol dependence with withdrawal, uncomplicated; F14.20 Cocaine dependence, uncomplicated; F17.213 Nicotine dependence, cigarettes, with withdrawal; Z86.69 Personal history of other diseases of the nervous system and sense organs; Z87.898 Personal history of other specified conditions
CPT/HCPCS: 36415; 80053; 81003; 85027; 86593; 87389; 93005; 93010